=== PATIENT | male | born 1950 | race African-American/Black ===

== ENCOUNTER 2020-04-09 13:57 | Outpatient (CLI) | payer MEDICARE, SELFPAY ==
[2020-04-09 14:44] LABS: Basophils Percent Auto 0.4 % (0.2-1.2); Eosinophils Absolute Auto 0.2 K/mm3 (0-0.3); Eosinophils Percent Auto 2.4 % (0-4.4); Hematocrit 40.6 % (42.0-52.0); Hemoglobin 13.4 g/dL (14.0-18.0); Immature Granulocyte Absolute 0.02 K/mm3 (0.00-0.031); Immature Granulocyte Percent A 0.2 % (0-0.5); Lymphocytes Absolute Auto 1.13 K/mm3 (0.9-3.2); Lymphocytes Percent Auto 13.7 % (18.3-44.2); Mean Corpuscular Hemoglobin 29.4 pg (26-34); Mean Platelet Volume 11.1 fl (7.4-10.4); Monocytes Absolute Auto 0.6 K/mm3 (0.1-0.6); Monocytes Percent Auto 6.8 % (2.6-8.5); Neutrophils Absolute Auto 6.3 K/mm3 (1.3-6.7); Neutrophils Percent Auto 76.5 % (45.5-73.1); Platelet Count Result 215 k/mm3 (150-375); Red Blood Count 4.56 M/mm3 (4.6-6.20); Red Cell Distribution Width 13.5 % (11.5-14.5); White Blood Count 8.2 K/mm3 (4.5-10.0)
[2020-04-09 15:05] LABS: Alanine Aminotransferase 29 U/L (4-50); Albumin Level 4.5 g/dL (3.5-5.1); Alkaline Phosphatase 82 U/L (38-126); Anion Gap 9 mmol/L (8-16); Aspartate Amino Transferase 21 U/L (17-59); Bilirubin,Total 0.5 mg/dL (0.2-1.3); Blood Urea Nitrogen 36 mg/dL (9-20); Calcium 9.9 mg/dL (8.4-10.2); Carbon Dioxide 28 mmol/L (22-30); Chloride 104 mmol/L (98-107); Estimated Glomerular Filt Rate 49; Glucose 104 mg/dL (75-110); Potassium 4.5 mmol/L (3.4-5.0); Sodium 141 mmol/L (137-145); Uric Acid 4.3 mg/dL (3.5-8.5)
[2020-04-09 15:15] LABS: Hemoglobin A1C 6.4 % (<5.7)
[2020-04-09 15:33] LABS: Prostate Specific Antigen 1.2 ng/mL (< OR = 4.0)
== END 2020-04-09 13:58 | disposition home or self-care (01) ==
PROVIDERS: PCP Family Medicine; Visit Provider Nurse Practitioner Family
DX: E78.5 Hyperlipidemia, unspecified (principal); I10 Essential (primary) hypertension; E11.9 Type 2 diabetes mellitus without complications; M10.9 Gout, unspecified; R35.1 Nocturia; Z12.5 Encounter for screening for malignant neoplasm of prostate
CPT/HCPCS: 36415; 80053; 83036; 84153; 84550; 85025; G0103

== ENCOUNTER 2020-08-15 11:05 | Outpatient (CLI) | payer MEDICARE, SELFPAY ==
[2020-08-15 12:24] LABS: Alanine Aminotransferase 32 U/L (4-50); Albumin Level 4.4 g/dL (3.5-5.1); Alkaline Phosphatase 73 U/L (38-126); Anion Gap 7 mmol/L (8-16); Aspartate Amino Transferase 27 U/L (17-59); Bilirubin,Total 0.5 mg/dL (0.2-1.3); Blood Urea Nitrogen 14 mg/dL (9-20); Calcium 9.5 mg/dL (8.4-10.2); Carbon Dioxide 29 mmol/L (22-30); Chloride 105 mmol/L (98-107); Estimated Glomerular Filt Rate > 60; Glucose 114 mg/dL (75-110); Potassium 4.2 mmol/L (3.4-5.0); Sodium 141 mmol/L (137-145)
[2020-08-15 13:22] LABS: Hemoglobin A1C 6.1 % (<5.7)
== END 2020-08-15 11:06 | disposition home or self-care (01) ==
PROVIDERS: PCP Family Medicine; Visit Provider Nurse Practitioner Family
DX: N18.30 Chronic kidney disease, stage 3 unspecified (principal); E11.9 Type 2 diabetes mellitus without complications; I12.9 Hypertensive chronic kidney disease with stage 1 through stage 4 chronic kidney disease, or unspecified chronic kidney disease
CPT/HCPCS: 36415; 80053; 83036

== ENCOUNTER 2020-08-28 08:19 | Outpatient (CLI) | payer MEDICARE, SELFPAY | END 2020-08-28 08:20 | disposition home or self-care (01) | LOC: ANHCOVIDVC 08:20 | PROVIDERS: PCP Family Medicine; Visit Provider Family Medicine | DX: Z23 Encounter for immunization (principal) | CPT/HCPCS: 0001A; 91300 ==

== ENCOUNTER 2020-09-18 08:23 | Outpatient (CLI) | payer MEDICARE, SELFPAY | END 2020-09-18 08:24 | disposition home or self-care (01) | LOC: ANHCOVIDVC 08:23 | PROVIDERS: PCP Family Medicine; Visit Provider Family Medicine | DX: Z23 Encounter for immunization (principal) | CPT/HCPCS: 0002A; 91300 ==

== ENCOUNTER 2021-03-28 08:07 | Outpatient (CLI) | payer MEDICARE, SELFPAY ==
--- NOTE | ~2021-03-28 | US_ITS ---
EXAMINATION: US aorta [facility] scr[facility] DATE: 03/28/2021 08:35 INDICATION: Encounter for screening for cardiovascular disorders. TECHNIQUE: Grayscale, color Doppler, and pulsed Doppler images of the aorta and common iliac arteries were obtained. COMPARISON: CT abdomen and pelvis 06/21/2011 FINDINGS: The aorta is normal in caliber. The right common iliac artery is normal in caliber. The left common i liac artery is normal in caliber. IMPRESSION: 1. No abdominal aortic aneurysm. Reviewed, dictated and finalized at location A.
== END 2021-03-28 08:08 | disposition home or self-care (01) ==
LOC: ANHIMG 08:08
PROVIDERS: PCP Family Medicine; Visit Provider Family Medicine
DX: Z13.6 Encounter for screening for cardiovascular disorders (principal)
CPT/HCPCS: 76706

== ENCOUNTER → 2021-12-04 10:29 | Outpatient (CLI) | payer MEDICARE, SELFPAY ==
--- NOTE | ~2021-12-04 | XR_ITS ---
EXAMINATION: XR hand RT min 3V DATE: 12/04/2021 11:22 INDICATION: Right hand pain. Injury. TECHNIQUE: 4 views of right hand were obtained. COMPARISON: None. FINDINGS: Bone alignment is normal. There is an intra-articular fracture of base of fifth metacarpal. There is moderate osteoarthritis of distal radioulnar joint and mild osteoarthritis of triscaphe stuart nt and first carpometacarpal joint. There is moderate osteoarthritis of second and third metacarpopha langeal joints. There is mild osteoarthritis of first metacarpophalangeal joint and mild to moderate osteoarthritis of many of the interphalangeal joints. IMPRESSION: 1. Intra-articular fracture of base of fifth metacarpal. 2. Polyarticular osteoarthritis. Reviewed, dictated and finalized at location B.
== END ==
PROVIDERS: PCP Family Medicine; Visit Provider Family Medicine
DX: M19.041 Primary osteoarthritis, right hand (principal)
CPT/HCPCS: 73130

== ENCOUNTER 2022-07-15 09:37 | Outpatient (CLI) | payer MEDICARE, SELFPAY ==
[2022-07-15 10:49] LABS: Hematocrit 41.1 % (42.0-52.0); Hemoglobin 13.2 g/dL (14.0-18.0); Mean Corpuscular HGB Conc 32.1 g/dl (32-36); Mean Corpuscular Hemoglobin 28.6 pg (26-34); Mean Corpuscular Volume 89.2 fl (80-100); Mean Platelet Volume 11.1 fl (7.4-10.4); Platelet Count Result 184 k/mm3 (150-375); Red Blood Count 4.61 M/mm3 (4.6-6.20); Red Cell Distribution Width 13.9 % (11.5-14.5); White Blood Count 6.3 K/mm3 (4.5-10.0)
[2022-07-15 10:54] LABS: Alanine Aminotransferase 27 U/L (6-50); Albumin Level 4.2 g/dL (3.5-5.1); Alkaline Phosphatase 68 U/L (38-126); Anion Gap 7 mmol/L (8-16); Aspartate Amino Transferase 25 U/L (17-59); Bilirubin,Total 0.6 mg/dL (0.2-1.3); Blood Urea Nitrogen 24 mg/dL (9-20); Carbon Dioxide 27 mmol/L (22-30); Chloride 104 mmol/L (98-107); Cholesterol 138 mg/dL (0-200); Estimated Glomerular Filt Rate > 60; Glucose 94 mg/dL (65-110); HDL Direct 40 mg/dL; Potassium 4.1 mmol/L (3.4-5.0); Sodium 138 mmol/L (137-145); Triglycerides 180 mg/dL (<150)
[2022-07-15 11:05] LABS: LDL Cholesterol Direct 52 mg/dL
[2022-07-15 11:10] LABS: Appearance Urine Clear (Clear); Bilirubin Urine Negative (Negative); Blood Urine Negative (Negative); Color Urine Yellow (Yellow); Glucose Urine UA Negative (Negative); Ketones Urine Negative (Negative); Leukocyte Esterase Ur Negative LEU/UL (NEGATIVE); Nitrate Urine Negative (Negative); Protein Urine Negative (Negative); Urobilinogen Urine 0.2 mg/dL (<2.0)
[2022-07-15 11:52] LABS: Hemoglobin A1C 6.5 % (<5.7)
[2022-07-15 12:31] LABS: Basophils Percent Auto 0.5 % (0.2-1.2); Eosinophils Absolute Auto 0.2 K/mm3 (0-0.3); Eosinophils Percent Auto 2.5 % (0-4.4); Hematocrit 41.8 % (42.0-52.0); Hemoglobin 13.6 g/dL (14.0-18.0); Immature Granulocyte Absolute 0.01 K/mm3 (0.00-0.031); Immature Granulocyte Percent A 0.2 % (0-0.5); Lymphocytes Absolute Auto 1.13 K/mm3 (0.9-3.2); Lymphocytes Percent Auto 17.9 % (18.3-44.2); Mean Corpuscular HGB Conc 32.5 g/dl (32-36); Mean Corpuscular Hemoglobin 29.3 pg (26-34); Mean Corpuscular Volume 90.1 fl (80-100); Mean Platelet Volume 10.8 fl (7.4-10.4); Monocytes Absolute Auto 0.5 K/mm3 (0.1-0.6); Monocytes Percent Auto 7.1 % (2.6-8.5); Neutrophils Absolute Auto 4.5 K/mm3 (1.3-6.7); Neutrophils Percent Auto 71.8 % (45.5-73.1); Platelet Count Result 188 k/mm3 (150-375); Red Blood Count 4.64 M/mm3 (4.6-6.20); Red Cell Distribution Width 14.1 % (11.5-14.5); White Blood Count 6.3 K/mm3 (4.5-10.0)
[2022-07-15 13:08] LABS: Add Urine Microscopic? NO
[2022-07-15 13:24] LABS: HIV 1/2 Ab P24 Ag Result Negative (Negative)
[2022-07-15 22:21] LABS: Microalbumin Urine Random 9.1 mg/L (0-16.7)
[2022-07-15 22:22] LABS: MALB Creatinine Ratio 4.7 mg/g (0-30)
[2022-07-18 14:03] LABS: NIL 0.02 IU/mL; Quantiferon TB Plus, 1T NEGATIVE (NEGATIVE)
== END 2022-07-15 09:38 | disposition home or self-care (01) ==
PROVIDERS: PCP Family Medicine; Visit Provider Family Medicine
DX: R35.1 Nocturia (principal); Z51.81 Encounter for therapeutic drug level monitoring; Z79.899 Other long term (current) drug therapy; L40.0 Psoriasis vulgaris; I10 Essential (primary) hypertension; E78.2 Mixed hyperlipidemia; E11.22 Type 2 diabetes mellitus with diabetic chronic kidney disease; N18.30 Chronic kidney disease, stage 3 unspecified
CPT/HCPCS: 36415; 80053; 80061; 81003; 82043; 83036; 84153; 84443; 85025; 85027; 86480; 86703; G0432

== ENCOUNTER → 2022-08-06 09:53 | Outpatient (CLI) | payer MEDICARE, SELFPAY ==
--- NOTE | ~2022-08-06 | CT_ITS ---
EXAMINATION: CT lung screening DATE: 08/06/2022 10:12 INDICATION: Lung cancer screening. History of tobacco dependence. TECHNIQUE: Computed tomography (CT) of the chest was performed without intravenous contrast. The dose -length product was 166.14 mGy-cm. Automated exposure control and iterative reconstruction technique were employed. COMPARISON: Chest x-ray dated 06/26/2013 FINDINGS: No thoracic lymphadenopathy. No significant pleural or pericardial effusion. No endobronchi al lesions. No focal airspace consolidation. No pneumothorax. There are calcified granulomas of the l eft upper lobe. There is moderate thoracic spondylosis. IMPRESSION: 1. Lung-RADS category 1: Negative. Continue annual screening with noncontrast low-dose chest CT in 12 months. Reviewed, dictated and finalized at location A. CITOR INSPECTOR IMPRESSION: 1. Lung-RADS category 1: Negative. Continue annual screening with noncontrast l ow-dose chest CT in 12 months.
== END ==
PROVIDERS: PCP Family Medicine; Visit Provider Family Medicine
DX: Z12.2 Encounter for screening for malignant neoplasm of respiratory organs (principal); F17.210 Nicotine dependence, cigarettes, uncomplicated
CPT/HCPCS: 71271

== ENCOUNTER 2023-04-15 15:12 | Outpatient (CLI) | payer MEDICARE, SELFPAY ==
[2023-04-15 16:38] LABS: Alanine Aminotransferase 24 U/L (6-50); Albumin Level 4.5 g/dL (3.5-5.1); Alkaline Phosphatase 79 U/L (38-126); Anion Gap 12 mmol/L (8-16); Aspartate Amino Transferase 24 U/L (17-59); Bilirubin,Total 0.4 mg/dL (0.2-1.3); Blood Urea Nitrogen 35 mg/dL (9-20); Calcium 9.9 mg/dL (8.4-10.2); Carbon Dioxide 25 mmol/L (22-30); Chloride 104 mmol/L (98-107); Estimated Glomerular Filt Rate 38; Glucose 114 mg/dL (65-110); Potassium 3.7 mmol/L (3.4-5.0); Sodium 141 mmol/L (137-145)
[2023-04-15 21:27] LABS: Hemoglobin A1C 6.3 % (<5.7)
== END 2023-04-15 15:13 | disposition home or self-care (01) ==
PROVIDERS: PCP Family Medicine; Visit Provider Family Medicine
DX: E11.9 Type 2 diabetes mellitus without complications (principal)
CPT/HCPCS: 36415; 80053; 83036

== ENCOUNTER 2023-12-30 12:53 | Outpatient (CLI) | payer MEDICARE, SELFPAY ==
--- NOTE | ~2023-12-30 | CT_ITS ---
CT Scan of the Chest without Contrast: Clinical Indication: Lung cancer screening, nicotine dependence Technique: Contiguous sections were acquired throughout the chest without intravenous contrast. Dose reduction technique was used on this scan by utilizing automated exposure control and iterative recon struction technique. The dose-length product (DLP) was 94.18 mGy-cm. COMPARISON: 08/06/2022 Findings: There is no evidence of any significant mediastinal, hilar or axillary lymphadenopathy. Extensive cor onary artery calcifications are present. There is no evidence of pleural or pericardial effusion. The lungs are clear. No pulmonary nodules or infiltrates are noted. Images through the upper abdomen reveal no abnormalities. Impression: Lung RADS 1: Negative. 12 month follow-up screening CT advised. Reviewed, dictated and finalized at location . Impression: Lung RADS 1: Negative. 12 month follow-up screening CT advised.
[2023-12-30 13:35] LABS: Basophils Percent Auto 0.4 % (0.2-1.2); Eosinophils Absolute Auto 0.2 K/mm3 (0-0.3); Eosinophils Percent Auto 2.6 % (0-4.4); Hematocrit 40.2 % (42.0-52.0); Hemoglobin 13.3 g/dL (14.0-18.0); Immature Granulocyte Absolute 0.01 K/mm3 (0.00-0.031); Immature Granulocyte Percent A 0.1 % (0-0.5); Lymphocytes Percent Auto 17.4 % (18.3-44.2); Mean Corpuscular HGB Conc 33.1 g/dl (32-36); Mean Corpuscular Hemoglobin 29.6 pg (26-34); Mean Corpuscular Volume 89.5 fl (80-100); Mean Platelet Volume 11.6 fl (7.4-10.4); Monocytes Absolute Auto 0.5 K/mm3 (0.1-0.6); Monocytes Percent Auto 6.8 % (2.6-8.5); Neutrophils Percent Auto 72.7 % (45.5-73.1); Platelet Count Result 192 k/mm3 (150-375); Red Blood Count 4.49 M/mm3 (4.6-6.20); Red Cell Distribution Width 14.2 % (11.5-14.5); White Blood Count 6.9 K/mm3 (4.5-10.0)
[2023-12-30 13:48] LABS: Appearance Urine Clear (Clear); Bilirubin Urine Negative (Negative); Blood Urine Negative (Negative); Color Urine Yellow (Yellow); Glucose Urine UA Negative (Negative); Ketones Urine Negative (Negative); Leukocyte Esterase Ur Negative LEU/UL (Negative); Nitrate Urine Negative (Negative); Protein Urine Negative (Negative); Specific Grav Ur 1.018 (1.001-1.035); Urobilinogen Urine 0.2 mg/dL (<2.0)
[2023-12-30 14:11] LABS: Creatinine Urine 205.8 mg/dL
[2023-12-30 14:11] LABS: Alanine Aminotransferase 21 U/L (6-50); Albumin Level 4.9 g/dL (3.5-5.1); Alkaline Phosphatase 62 U/L (38-126); Anion Gap 11 mmol/L (4-12); Aspartate Amino Transferase 23 U/L (17-59); Bilirubin,Total 0.6 mg/dL (0.2-1.3); Blood Urea Nitrogen 35 mg/dL (9-20); Calcium 9.6 mg/dL (8.4-10.2); Carbon Dioxide 27 mmol/L (22-30); Chloride 101 mmol/L (98-107); Cholesterol 136 mg/dL (0-200); Estimated Glomerular Filt Rate 42; Glucose 115 mg/dL (65-110); HDL Direct 39 mg/dL; Potassium 3.9 mmol/L (3.4-5.0); Sodium 139 mmol/L (137-145); Triglycerides 155 mg/dL (<150)
[2023-12-30 14:16] LABS: MALB Creatinine Ratio 5.4 mg/g (0-30); Microalbumin Urine Random 11.2 mg/L (0-16.7)
[2023-12-30 14:17] LABS: Iron 69 ug/dL (49-181)
[2023-12-30 14:23] LABS: LDL Cholesterol Direct 70 mg/dL
[2023-12-30 14:27] LABS: Percent Iron Saturation 22 % (20-50)
[2023-12-30 14:33] LABS: Add Urine Microscopic? NO
[2023-12-30 14:41] LABS: Prostate Specific Antigen 1.2 ng/mL (< OR = 4.0)
[2023-12-30 15:16] LABS: Folic Acid 3.8 ng/mL (2.76->20)
[2023-12-30 21:28] LABS: Hemoglobin A1C 6.5 % (<5.7)
== END 2023-12-30 12:54 | disposition home or self-care (01) ==
PROVIDERS: PCP Family Medicine; Visit Provider Physician Assistant
DX: D64.9 Anemia, unspecified (principal); E11.9 Type 2 diabetes mellitus without complications; E78.5 Hyperlipidemia, unspecified; I10 Essential (primary) hypertension; M10.9 Gout, unspecified; N18.30 Chronic kidney disease, stage 3 unspecified; Z12.5 Encounter for screening for malignant neoplasm of prostate; F17.210 Nicotine dependence, cigarettes, uncomplicated; Z12.2 Encounter for screening for malignant neoplasm of respiratory organs
CPT/HCPCS: 36415; 71271; 80053; 80061; 81003; 82043; 82607; 82728; 82746; 83036; 83540; 83550; 84153; 84443; 84550; 85025; G0103

== ENCOUNTER 2024-02-08 11:45 | Outpatient (CLI) | payer MEDICARE, SELFPAY ==
--- NOTE | ~2024-02-08 | XR_ITS ---
XR hip BI 2V w AP pelvis Ordering provider: Marty Lawrence PA-C History: . BILATERAL ANTERIOR HIP PAIN, NO INJURY . Comparison: None. FINDINGS: BONES: No acute fracture or dislocation. HIP JOINT SPACES: Mild bilateral osteoarthritic changes with marginal osteophytes SACROILIAC JOINT SPACES/LUMBAR SPINE: The sacroiliac joint spaces shows bilateral sacroiliacs. Mild d egenerative changes of the visualized lower lumbar spine. PUBIC SYMPHYSIS: Normal. SOFT TISSUES: Atherosclerotic changes of the vessels. IMPRESSION: No acute osseous abnormality of the bilateral hips and pelvis. Reviewed, dictated and finalized at location A.
[2024-02-08 13:24] LABS: Basophils Percent Auto 0.4 % (0.2-1.2); Eosinophils Absolute Auto 0.2 K/mm3 (0-0.3); Eosinophils Percent Auto 1.9 % (0-4.4); Hematocrit 36.9 % (42.0-52.0); Hemoglobin 12.3 g/dL (14.0-18.0); Immature Granulocyte Absolute 0.03 K/mm3 (0.00-0.031); Immature Granulocyte Percent A 0.4 % (0-0.5); Lymphocytes Absolute Auto 1.15 K/mm3 (0.9-3.2); Lymphocytes Percent Auto 14.9 % (18.3-44.2); Mean Corpuscular HGB Conc 33.3 g/dl (32-36); Mean Corpuscular Hemoglobin 29.9 pg (26-34); Mean Corpuscular Volume 89.8 fl (80-100); Mean Platelet Volume 10.9 fl (7.4-10.4); Monocytes Absolute Auto 0.8 K/mm3 (0.1-0.6); Monocytes Percent Auto 10.2 % (2.6-8.5); Neutrophils Absolute Auto 5.6 K/mm3 (1.3-6.7); Neutrophils Percent Auto 72.2 % (45.5-73.1); Platelet Count Result 266 k/mm3 (150-375); Red Blood Count 4.11 M/mm3 (4.6-6.20); Red Cell Distribution Width 13.3 % (11.5-14.5); White Blood Count 7.7 K/mm3 (4.5-10.0)
[2024-02-08 13:47] LABS: Alanine Aminotransferase 15 U/L (6-50); Albumin Level 4.3 g/dL (3.5-5.1); Alkaline Phosphatase 67 U/L (38-126); Anion Gap 13 mmol/L (4-12); Aspartate Amino Transferase 18 U/L (17-59); Bilirubin,Total 0.4 mg/dL (0.2-1.3); Blood Urea Nitrogen 51 mg/dL (9-20); Calcium 9.4 mg/dL (8.4-10.2); Carbon Dioxide 25 mmol/L (22-30); Chloride 100 mmol/L (98-107); Creatine Kinase 113 U/L (55-170); Estimated Glomerular Filt Rate 38; Glucose 129 mg/dL (65-110); Potassium 4.2 mmol/L (3.4-5.0); Sodium 138 mmol/L (137-145)
[2024-02-08 13:53] LABS: Rheumatoid Factor < 12.0 IU/ML (<12)
[2024-02-08 14:25] LABS: Erythrocyte Sedimentation Rate 63 mm/hr (0-20)
[2024-02-09 11:08] LABS: CRP, High Sensitivity >20.0 mg/L
== END 2024-02-08 11:46 | disposition home or self-care (01) ==
PROVIDERS: PCP Family Medicine; Visit Provider Physician Assistant
DX: M25.551 Pain in right hip (principal); M25.552 Pain in left hip; R29.898 Other symptoms and signs involving the musculoskeletal system; I10 Essential (primary) hypertension
CPT/HCPCS: 36415; 73521; 80053; 82550; 85025; 85652; 86038; 86039; 86141; 86430

== ENCOUNTER 2024-03-21 15:11 | Emergency (ER) | payer MEDICARE, SELFPAY ==
[2024-03-21 15:15] VITALS: BP 128/68; PULSE 76; RESP 20; TEMP 36.8; O2SAT 98
--- NOTE | 2024-03-21 16:06 | ED.BACK ---
HPI - Back Pain/Injury General Chief Complaint: Urogenital-Male Stated Complaint: low back pain, abd pain, groin pain Time Seen by Provider: 03/21/24 16:06 Focused HPI: This is a 73 year old male that presents to the ER for left sided hip pain, low back pain ongoing over the last several weeks. Reports he has had some x-rays of his low back and was evaluated at [facility]. No recent injuries. Reports he had surgery on his lumbar spine years ago. Reports he has had some urinary incontinence. Also reports history of kidney stones. Denies fever, dysuria, hematuria, saddle anesthesia or bowel incontinence. GENERAL: Well-appearing, well-nourished, and in no acute distress. HEAD: Normocephalic, atraumatic. CHEST: Clear to auscultation. ?No respiratory distress. HEART: Regular rate and rhythm.? NEURO: ?Alert and oriented x3. Patient screened in triage and initial orders placed.? ?Additional care and disposition to be based upon?diagnostic testing and treatment. Related Data Allergies Allergy/AdvReac Type Severity Reaction Status Date / Time No Known Allergies Allergy Verified 03/03/24 08:01 [facility] Past Medical History Medical History Psoriasis Family History Family History Mother Family history of kidney disease Diabetes mellitus Hypertension Family history of cardiovascular disease Father Hypertension Family history of lymphoma Sibling Family history of malignant neoplasm of breast in first degree relative Social History Social History Smoking packs per day: 0.5 Smoking cigarettes per day: 10.0 Years smoked: 15 Smoking pack-years: 7.50 Smoking status: Current every day smoker Tobacco type: cigarettes Second hand tobacco smoke exposure: Yes Alcohol intake: current Substance use: never Substance use type: does not use Living arrangements: with family Occupation/Education: retired Gender identity (if verbalized by the patient): Male Sexual Orientation (if Verbalized by the Patient): Straight or Heterosexual Course Course Emergency Course: Patient left after being seen by myself and before any further evaluation or management Vital Signs Vital signs: Vital Signs Temperature 98.3 F 03/21/24 15:15 Pulse Rate 76 03/21/24 15:15 Respiratory Rate 20 03/21/24 15:15 Blood Pressure 128/68 03/21/24 15:15 Pulse Oximetry 98 03/21/24 15:15 Oxygen Delivery Room Air 03/21/24 15:15 Temperature 99.0 F 03/21/24 17:24 Pulse Rate 67 03/21/24 17:24 Respiratory Rate 18 03/21/24 17:24 Blood Pressure 114/66 03/21/24 17:24 Pulse Oximetry 99 03/21/24 17:24 Oxygen Delivery Room Air 03/21/24 15:15 Discharge Plan Discharge Clinical Impression: Low back pain Patient Disposition: Elopement After Seen by Prov Condition: Stable Prescriptions: No Action hydrocortisone 2.5 % cream 1 applic topical BID Qty: 453.6 1RF tramadol 50 mg tablet 50 mg PO Q6H PRN (Reason: pain) Qty: 30 0RF prednisone 10 mg tablet See Rx Instructions PO DAILY Qty: 15 0RF Rx Instructions: Take 2 tabs x 5 days, then 1 tab x 5 days (DME) Blood Glucose Test Strip See Rx Instructions .ROUTE .MEDSUPPLY Qty: 100 3RF Rx Instructions: Use once daily to check blood sugar (DME) lancets Misc See Rx Instructions .ROUTE .MEDSUPPLY Qty: 100 2RF Rx Instructions: Use once daily to check blood sugar clobetasol 0.05 % shampoo 1 applic topical DAILY Qty: 118 0RF tadalafil 20 mg tablet 20 mg PO DAILY PRN (Reason: sexual activity) Qty: 30 0RF Rx Instructions: administer approximately 30min before sexual activity; do not use more than 1 dose per 24hrs indomethacin 25 mg capsule 50 mg PO TID Qty: 30 0RF Rx Instructions: Take 50mg TID x 3 days; Then decrease dosage to 2
[2024-03-21 17:24] VITALS: BP 114/66; PULSE 67; RESP 18; TEMP 37.2; O2SAT 99
--- NOTE | 2024-03-21 20:24 | PC.NURSE ---
Pt approaches triage desk stating he is going he is going to leave due to wait times. Pt advised to be seen in nearest emergency dept if symptoms worsening.
== END 2024-03-21 20:24 | disposition left against medical advice (07) ==
LOC: ANHED 20:31
PROVIDERS: Emergency Provider Physician Assistant; PCP Family Medicine
DX: M54.50 Low back pain, unspecified (principal); L40.9 Psoriasis, unspecified; F17.210 Nicotine dependence, cigarettes, uncomplicated; Z79.84 Long term (current) use of oral hypoglycemic drugs; Z79.899 Other long term (current) drug therapy
CPT/HCPCS: 99281

== ENCOUNTER 2024-03-23 16:06 | Outpatient (CLI) | payer MEDICARE, SELFPAY ==
[2024-03-23 16:53] LABS: CRP 20.5 mg/dL (<1.0)
[2024-03-23 16:57] LABS: Erythrocyte Sedimentation Rate 62 mm/hr (0-20)
== END 2024-03-23 16:07 | disposition home or self-care (01) ==
LOC: ANHLAB 16:11
PROVIDERS: PCP Family Medicine; Visit Provider Family Medicine
DX: M25.551 Pain in right hip (principal); M25.552 Pain in left hip; M54.50 Low back pain, unspecified
CPT/HCPCS: 36415; 85652; 86140

== ENCOUNTER 2024-04-21 14:29 | Outpatient (CLI) | payer MEDICARE, SELFPAY ==
--- NOTE | ~2024-04-21 | MR_ITS ---
EXAMINATION: MR lumbar spine wo/w con DATE: 04/21/2024 15:29 INDICATION: Acute left-sided low back pain. TECHNIQUE: Magnetic resonance imaging (MRI) of the lumbar spine was performed without and with 16 mL MultiHance intravenous contrast. COMPARISON: None FINDINGS: There is 11 degrees levoscoliosis of lumbar spine. Vertebral body heights are normal. There is mildly decreased disc height at L2-L3, L3-L4, and L4-L5 and severely decreased disc height at L5- S1. There is ligamentum flavum hypertrophy at the disc levels from L1-L2 through L4-L5. The distal sp inal cord signal intensity is normal. The conus medullaris is at L2. The following disc levels are sp ecifically discussed: L1-L2: There is a left foraminal protrusion. There is severe bilateral facet joint osteoarthritis. Th ere is mild left neural foraminal stenosis. There is no central canal stenosis. L2-L3: The disc is bulging. There is severe bilateral facet joint osteoarthritis. There is mild bilat eral neural foraminal stenosis. There is mild central canal stenosis. L3-L4: The disc is bulging. There is severe bilateral facet joint osteoarthritis. There is mild bilat eral neural foraminal stenosis. There is mild central canal stenosis. L4-L5: The disc is bulging. There is severe bilateral facet joint osteoarthritis. There is mild bilat eral neural foraminal stenosis. There is mild central canal stenosis. L5-S1: The disc is bulging and has an annular fissure. There is severe right and moderate left facet joint osteoarthritis. There is mild bilateral neural foraminal stenosis. There is mild central canal stenosis. There are changes of posterior decompression. IMPRESSION: 1. Severe lower lumbar spondylosis. Reviewed, dictated and finalized at location B.
== END 2024-04-21 14:30 | disposition home or self-care (01) ==
PROVIDERS: PCP Family Medicine; Visit Provider Internal Medicine
DX: M47.896 Other spondylosis, lumbar region (principal)
CPT/HCPCS: 72158; A9577

== ENCOUNTER 2024-07-11 20:02 | Emergency (ER) | payer MEDICARE, SELFPAY ==
[2024-07-11 20:04] VITALS: BP 101/55; PULSE 64; RESP 15; TEMP 36.3; O2SAT 98
--- NOTE | 2024-07-11 20:10 | ECG_ITS ---
Test Date: 2024-07-11 20:15:26 Measurements Intervals [place] Rate: 57 P: 44 SD: 181 QRS: -23 QRSD: 90 T: -27 QT: 437 QTc: 428 Interpretive Statements SINUS BRADYCARDIA WITH OCCASIONAL SUPRAVENTRICULAR PREMATURE COMPLEXES BORDERLINE LEFT AXIS DEVIATION [QRS AXIS < -20] NONSPECIFIC T-WAVE ABNORMALITY No previous ECG available for comparison Electronically Signed On 07-12-2024 10:41:13 NURSING HOME ASSISTANT ADMINISTRATOR by Ibrahima Beebe M.D.
[2024-07-11 20:34] LABS: Basophils Percent Auto 0.3 % (0.2-1.2); Eosinophils Absolute Auto 0.1 K/mm3 (0-0.3); Eosinophils Percent Auto 1.2 % (0-4.4); Hematocrit 39.3 % (42.0-52.0); Hemoglobin 12.6 g/dL (14.0-18.0); Immature Granulocyte Absolute 0.02 K/mm3 (0.00-0.031); Immature Granulocyte Percent A 0.2 % (0-0.5); Lymphocytes Absolute Auto 1.05 K/mm3 (0.9-3.2); Lymphocytes Percent Auto 12.2 % (18.3-44.2); Mean Corpuscular HGB Conc 32.1 g/dl (32-36); Mean Corpuscular Hemoglobin 29.6 pg (26-34); Mean Corpuscular Volume 92.3 fl (80-100); Mean Platelet Volume 11.4 fl (7.4-10.4); Monocytes Percent Auto 11.3 % (2.6-8.5); Neutrophils Absolute Auto 6.4 K/mm3 (1.3-6.7); Neutrophils Percent Auto 74.8 % (45.5-73.1); Platelet Count Result 199 k/mm3 (150-375); Red Blood Count 4.26 M/mm3 (4.6-6.20); Red Cell Distribution Width 13.5 % (11.5-14.5); White Blood Count 8.6 K/mm3 (4.5-10.0)
[2024-07-11 20:56] LABS: Alanine Aminotransferase 15 U/L (6-50); Albumin Level 4.2 g/dL (3.5-5.1); Alkaline Phosphatase 81 U/L (38-126); Anion Gap 16 mmol/L (4-12); Aspartate Amino Transferase 17 U/L (17-59); Bilirubin,Total 0.6 mg/dL (0.2-1.3); Blood Urea Nitrogen 51 mg/dL (9-20); Carbon Dioxide 25 mmol/L (22-30); Chloride 99 mmol/L (98-107); Estimated CRCL calculation 19 ml/min; Estimated Glomerular Filt Rate 23; Glucose 195 mg/dL (65-110); Potassium 3.7 mmol/L (3.4-5.0); Sodium 140 mmol/L (137-145)
[2024-07-11 21:15] LABS: Lipase 75 U/L (23-300); Magnesium 1.8 mg/dL (1.6-2.3)
[2024-07-11 21:26] LABS: Troponin I < 0.012 ng/mL (0.000-0.034)
[2024-07-11 22:01] VITALS: BP 93/60; PULSE 64; RESP 18; O2SAT 97
[2024-07-11] MEDS: SODIUM CHLORIDE 0.9% IV 1,000 ML 999 ML IV CONT ×2 (22:37)
[2024-07-11 22:46] LABS: Influenza A QL RT-PCR Negative (Negative); Influenza B QL RT-PCR Negative (Negative); RSV RNA, RT-PCR Negative (Negative); SARS-CoV-2 RNA PCR Negative (Negative)
--- NOTE | 2024-07-11 22:53 | ED_ITS ---
HPI - Dizziness General Chief Complaint: Syncope Stated Complaint: Syncopal Episode Time Seen by Provider: 07/11/24 21:58 History of Present Illness HPI Narrative: Patient is a 73-year-old male who presents to the emergency department this evening accompanied by his daughter and son due to concern for near syncopal episodes over the past few days. Patient admits that he has not been eating or drinking much due to no appetite and also has been having some vomiting and diarrhea. Daughter who is present at bedside states that he does not eat or drink anything throughout the whole day only at night before he goes to bed and when he eats very little. Admits to lightheadedness and some dizziness during those near syncopal episodes. Patient states that he remembers the events and states that he did not blacked out. Denies any seizure-like activity. Denies any focal weakness, numbness and/or tingling. Denies any URI symptoms including cough, shortness of breath, denies any urinary symptoms including dysuria or hematuria. Patient states that he feels great at this time and has no complaints or symptoms. Related Data Allergies Allergy/AdvReac Type Severity Reaction Status Date / Time No Known Allergies Allergy Verified 07/11/24 20:02 Review of Systems 2 Review of Systems: All systems are reviewed and are negative unless stated otherwise in the HPI. PMFSH Past Medical History Medical History Psoriasis Surgical History Surgical History History of lumbar surgery Family History Family History Mother Family history of kidney disease Diabetes mellitus Hypertension Family history of cardiovascular disease Father Hypertension Family history of lymphoma Sibling Family history of malignant neoplasm of breast in first degree relative Social History Social History Smoking packs per day: 0.5 Smoking cigarettes per day: 10.0 Years smoked: 15 Smoking pack-years: 7.50 Smoking status: Current every day smoker Tobacco type: cigarettes Second hand tobacco smoke exposure: Yes Alcohol intake: current Substance use: never Substance use type: does not use Living arrangements: with family Occupation/Education: retired Gender identity (if verbalized by the patient): Male Sexual Orientation (if Verbalized by the Patient): Straight or Heterosexual Exam 2 Narrative: General: Alert, awake, afebrile, in no acute distress. HEENT: PERRL, no rhinorrhea, no post nasal drip, oropharynx clear, dry mucous membranes. Neck: Trachea midline, no JVD, no lymphadenopathy. Cardiovascular: Regular rate and rhythm, no murmurs, rubs or gallops, no peripheral edema. Respiratory: Clear to auscultation bilaterally, no tachypnea, no wheezing, no rhonchi, no rubs, no respiratory distress. Abdomen: Soft, nontender, nondistended, no rebound, no guarding, no peritoneal signs. Musculoskeletal: No joint swelling or deformity, normal muscle tone, intact bilateral hip flexions any extensions. Skin: No rashes or petechia, no signs of infection. Psychiatric: Alert and oriented, normal behavior and judgment for situation. Neurological: Alert and oriented to person, place, and time. Follows all commands. No focal deficits, moving all 4 extremities spontaneously, speech is clear and fluent. Course Vital Signs Vital signs: Vital Signs Temperature 97.4 F L 07/11/24 20:04 Pulse Rate 64 07/11/24 20:04 Respiratory Rate 15 07/11/24 20:04 Blood Pressure 101/55 L 07/11/24 20:04 Pulse Oximetry 98 07/11/24 20:04 Oxygen Delivery Room Air 07/11/24 20:04 Temperature 97.4 F L 07/11/24 20:04 Pulse Rate 65 07/12/24 00:09 Respiratory Rate 17 07/12/24 00:09 Blood Pressure 92/63 L 07/12/24 00:09 Pulse Oximetry 100 07/12/24 00:09 Oxygen Delivery Room Air 07/11/24 20:04 MDM - Dizziness MDM Narrative Medical decision making narrative: The patient was evaluated by myself in the emergency department. History is obtained from patient who is an independent historian and physical exam was performed. External medical records were reviewed at this time. IV was established and pertinent tests were ordered. Patient was administered 1 L IV fluid bolus with normal saline. EKG was obtained which revealed sinus bradycardia rate of 57 beats per minute, no evidence of acute ischemia. EKG was independently interpreted by me and is currently pending official cardiology read. Laboratory results obtained revealing a BUN of 51 and creatinine of 3.28. Patient's creatinine usually runs as high as 2.10. At this time patient was administered a 2 L IV fluid bolus with normal saline. Patient was informed of these findings at bedside and that his acute kidney injury is likely secondary to dehydration. Repeat blood work after 2 L IV fluid bolus was obtained at this time and showed improvement of the patient's creatinine to 2.84. Differential diagnosis considerations include acute viral syndrome, dehydration, electrolyte derangements. Comorbidities impacting this visit include none. I have evaluated and discussed social determinants of health with the patient that could potentially impact subsequent diagnosis and treatment plans. On repeat assessment of the patient, reevaluation revealed that the patient is doing well and is in no acute distress. Patient symptoms have improved since he arrived to our emergency department. Repeat vital signs were all reviewed and noted to be stable. Differential diagnosis and treatment plan were discussed with the patient at bedside. Shared medical decision-making with the patient was discussed at this time regarding admission versus discharge. Patient states that he feels great and would like to be discharged. He was instructed that he will need to follow up with his primary care physician to have his kidney function recheck and that he will need to maintain her his oral hydration to prevent any worsening kidney function and patient is agreeable with this plan. All questions were answered to the patient's satisfaction. Patient will follow up with his PCP in 3-5 days. Script for Zofran was sent to patient's pharmacy to use as needed for nausea/vomiting. Patient was provided with strict return precautions and instructed to return to the emergency department if any new or worsening symptoms develop. The patient was discharged in stable condition. Lab Data 07/11/24 20:26 07/12/24 00:18 Labs: Lab Results 07/11/24 07/11/24 07/11/24 Range/Units : 20: 22:04 WBC 8.6 (4.5-10.0) K/mm3 RBC 4.26 L (4.6-6.20) M/mm3 Hgb 12.6 L (14.0-18.0) g/dL Hct 39.3 L (42.0-52.0) % MCV 92.3 (80-100) fl MCH 29.6 (26-34) pg MCHC 32.1 (32-36) g/dl RDW 13.5 (11.5-14.5) % Plt Count 199 (150-375) k/mm3 MPV 11.4 H (7.4-10.4) fl Immature Gran % (Auto) 0.2 (0-0.5) % Neut % (Auto) 74.8 H (45.5-73.1) % Lymph % (Auto) 12.2 L (18.3-44.2) % [place] % (Auto) 11.3 H (2.6-8.5) % Eos % (Auto) 1.2 (0-4.4) % Baso % (Auto) 0.3 (0.2-1.2) % Lymph # (Auto) 1.05 (0.9-3.2) K/mm3 [place] # (Auto) 1.0 H (0.1-0.6) K/mm3 Eos # (Auto) 0.1 (0-0.3) K/mm3 Baso # (Auto) 0.0 (0.0-0.1) K/mm3 Abs Immat Gran (auto) 0.02 (0.00-0.031) K/mm3 Absolute Neuts (auto) 6.4 (1.3-6.7) K/mm3 Absolute Nucleated RBC 0.000 (0.0-0.012) K/mm3 Nucleated RBC % 0.0 (0.0-0.2) % Sodium 140 (137-145) mmol/L Potassium 3.7 (3.4-5.0) mmol/L Chloride 99 (98-107) mmol/L Carbon Dioxide 25 (22-30) mmol/L Anion Gap 16 H (4-12) mmol/L BUN 51 H (9-20) mg/dL Creatinine 3.29 H (0.7-1.3) mg/dL Estim Creat Clear Calc 19 ml/min Estimated GFR 23 L (59 - ) Glucose 195 H (65-110) mg/dL Calcium 9.0 (8.4-10.2) mg/dL Magnesium 1.8 (1.6-2.3) mg/dL Total Bilirubin 0.6 (0.2-1.3) mg/dL AST 17 (17-59) U/L ALT 15 (6-50) U/L Alkaline Phosphatase 81 (38-126) U/L Troponin I < 0.012 (0.000-0.034) ng/mL Total Protein 8.0 (6.3-8.2) g/dL Albumin 4.2 (3.5-5.1) g/dL Lipase 75 (23-300) U/L Influenza A (RT-PCR) Negative (Negative) Influenza B (RT-PCR) Negative (Negative) RSV (RT-PCR) Negative (Negative) SARS-CoV-2 RNA (RT-PCR) Negative (Negative) 07/12/24 Range/Units 00:18 WBC (4.5-10.0) K/mm3 RBC (4.6-6.20) M/mm3 Hgb (14.0-18.0) g/dL Hct (42.0-52.0) % MCV (80-100) fl MCH (26-34) pg MCHC (32-36) g/dl RDW (11.5-14.5) % Plt Count (150-375) k/mm3 MPV (7.4-10.4) fl Immature Gran % (Auto) (0-0.5) % Neut % (Auto) (45.5-73.1) % Lymph % (Auto) (18.3-44.2) % [place] % (Auto) (2.6-8.5) % Eos % (Auto) (0-4.4) % Baso % (Auto) (0.2-1.2) % Lymph # (Auto) (0.9-3.2) K/mm3 [place] # (Auto) (0.1-0.6) K/mm3 Eos # (Auto) (0-0.3) K/mm3 Baso # (Auto) (0.0-0.1) K/mm3 Abs Immat Gran (auto) (0.00-0.031) K/mm3 Absolute Neuts (auto) (1.3-6.7) K/mm3 Absolute Nucleated RBC (0.0-0.012) K/mm3 Nucleated RBC % (0.0-0.2) % Sodium 139 (137-145) mmol/L Potassium 3.9 (3.4-5.0) mmol/L Chloride 108 H (98-107) mmol/L Carbon Dioxide 22 (22-30) mmol/L Anion Gap 9 (4-12) mmol/L BUN 49 H (9-20) mg/dL Creatinine 2.84 H (0.7-1.3) mg/dL Estim Creat Clear Calc 22 ml/min Estimated GFR 27 L (59 - ) Glucose 172 H (65-110) mg/dL Calcium 7.2 L (8.4-10.2) mg/dL Magnesium (1.6-2.3) mg/dL Total Bilirubin (0.2-1.3) mg/dL AST (17-59) U/L ALT (6-50) U/L Alkaline Phosphatase (38-126) U/L Troponin I (0.000-0.034) ng/mL Total Protein (6.3-8.2) g/dL Albumin (3.5-5.1) g/dL Lipase (23-300) U/L Influenza A (RT-PCR) (Negative) Influenza B (RT-PCR) (Negative) RSV (RT-PCR) (Negative) SARS-CoV-2 RNA (RT-PCR) (Negative) Discharge Plan Discharge Clinical Impression: Acute dehydration, CHAVEZ (acute kidney injury), Near syncope Patient Disposition: Home, Self-Care Condition: Improved Instructions: Antibiotic Form, Dehydration (ED), Near Syncope (ED) Additional Instructions: Please follow-up with your family doctor within the next 3-5 days to have your kidney function rechecked. You were instructed to maintain your oral hydration by drinking lots of fluids throughout the day to prevent kidney injury. Return to the emergency department if any new or worsening symptoms develop. Use the prescribed nausea pill as needed for nausea and/or vomiting. Patient Language: Swiss Prescriptions: New ondansetron 4 mg tablet,disintegrating 4 mg PO Q8H PRN (Reason: nausea and vomiting) Qty: 10 0RF No Action hydrocortisone 2.5 % cream 1 applic topical BID Qty: 453.6 1RF prednisone 10 mg tablet See Rx Instructions PO DAILY Qty: 15 0RF Rx Instructions: Take 2 tabs x 5 days, then 1 tab x 5 days hydrocodone-acetaminophen 5-325 mg tablet 1 tablet PO Q6H PRN (Reason: pain) Qty: 30 0RF (DME) Blood Glucose Test Strip See Rx Instructions .ROUTE .MEDSUPPLY Qty: 100 3RF Rx Instructions: Use once daily to check blood sugar (DME) lancets Misc See Rx Instructions .ROUTE .MEDSUPPLY Qty: 100 2RF Rx Instructions: Use once daily to check blood sugar clobetasol 0.05 % shampoo 1 applic topical DAILY Qty: 118 0RF tadalafil 20 mg tablet 20 mg PO DAILY PRN (Reason: sexual activity) Qty: 30 0RF Rx Instructions: administer approximately 30min before sexual activity; do not use more than 1 dose per 24hrs indomethacin 25 mg capsule 50 mg PO TID Qty: 30 0RF Rx Instructions: Take 50mg TID x 3 days; Then decrease dosage to 25mg TID x 5-7 days as needed amlodipine-olmesartan 10-40 mg tablet 1 tablet PO DAILY Qty: 90 2RF atorvastatin 40 mg tablet 40 mg PO DAILY Qty: 90 2RF hydrochlorothiazide 25 mg tablet 25 mg PO DAILY Qty: 90 2RF metformin 1,000 mg tablet 1,000 mg PO BID Qty: 180 2RF nebivolol [Bystolic] 5 mg tablet 5 mg PO DAILY Qty: 90 2RF Follow-up/Referrals: Rolando Reed MD [Primary Care Provider] - 3 Days Time of Disposition: 00:44
[2024-07-12 00:09] VITALS: BP 92/63; PULSE 65; RESP 17; O2SAT 100
[2024-07-12 00:34] LABS: Anion Gap 9 mmol/L (4-12); Blood Urea Nitrogen 49 mg/dL (9-20); Calcium 7.2 mg/dL (8.4-10.2); Carbon Dioxide 22 mmol/L (22-30); Chloride 108 mmol/L (98-107); Estimated CRCL calculation 22 ml/min; Estimated Glomerular Filt Rate 27; Glucose 172 mg/dL (65-110); Potassium 3.9 mmol/L (3.4-5.0); Sodium 139 mmol/L (137-145)
[2024-07-12 00:53] VITALS: BP 88/63; PULSE 62; RESP 18; O2SAT 98
--- OUTSIDE RECORDS SUMMARY | 2024-07-14 14:56 | XMS_ITS | Referral Summary ---
Author Organization [facility] [address] Address [address] [place] [address] Care Team Providers Care Form Setter Metal Road Forms Name Role Phone Enmanuel Martinez MD Unavailable [phone] Rolando Reed MD Primary Care Provider Encounters Date Type Department Care Team Description 04/28/2024 Orders Only [facility] [address] [place] [phone] Clay Morales PA 04/26/2024 Telephone [facility] [address] [place] [phone] Harriet Rai 04/26/2024 11:00 AM DRYWALL SPRAYER Office Visit [facility] [address] [place] [phone] Clay Morales PA Acute left-sided low back pain, unspecified whether sciatica present (Primary Dx); 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, subsequent encounter; 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 from Last 3 Months Allergies No known active allergies Medications amlodipine-olme sartan (ESTELA) 10-40 mg per tablet Take 1 tablet by mouth daily 03/28/2024 Active atorvastatin (LIPITOR) 40 mg tablet Take 1 tablet (40 mg total) by mouth daily 03/28/2024 Active hydroCHLOROthia zide (HYDRODIURIL) 25 mg tablet Take 1 tablet (25 mg total) by mouth daily 03/28/2024 Active HYDROcodone-chepe taminophen (NORCO) 5-325 mg per tablet Take by mouth every 6 (six) hours as needed 03/23/2024 Active metFORMIN (GLUCOPHAGE) 1,000 mg tablet Take 1 tablet (1,000 mg total) by mouth 2 (two) times a day 03/28/2024 Active methylPREDNISol one (MEDROL DOSEPACK) 4 mg Dosepack TAKE BY MOUTH DIRECTED ON INSIDE OF PACKAGE 02/08/2024 Active nebivoloL (BYSTOLIC) 5 mg tablet Take 1 tablet (5 mg total) by mouth daily 03/28/2024 Active traMADoL (ULTRAM) 50 mg tablet Take by mouth every 6 (six) hours as needed 03/03/2024 Active allopurinoL (ZYLOPRIM) 100 mg tablet Take 1 tablet (100 mg total) by mouth daily 30 tablet 1 04/26/2024 10/24/19 25 Active Active Problems Problem Noted Date Diagnosed Date Acute left-sided low back pain 04/05/2024 Assessment & Plan (04/26/2024 11:38 AM DRYWALL SPRAYER): Tai is a pleasant 73-year-old male that presented to our office with sudden onset pain few months prior that began in the lower back, left buttock, left proximal leg, left groin, and over the left greater trochanter with lesser degree of symptoms in the right side. Symptoms are more notable in the morning, although certainly exacerbated with activities. No previous benefit with Medrol Dosepak. Toradol and hydrocodone/acetaminophen provide partial relief of symptoms. Denies peripheral joint complaints. No obvious peripheral synovitis with a few Depuytren's contractures and Alejandra's/Heberden's nodes on exam that were appreciable. Has full hip range of motion exam with negative straight leg raise. Did have TTP over the left buttock particularly over the gluteus medius/minimus muscles. L-spine MRI with and without contrast 03/2024 displayed severe lower lumbar spondylosis. This time, suspect that the majority of his symptoms are related to degenerative arthritis throughout the lower back and/or gluteus medius/minimus muscle strain, which may be contributing as well. Symptoms are gradually improving. Will send to physical therapy. Symptoms persist, consider pain management for further evaluation and management. Follow up 8 weeks. Sooner if needed. Seen with Dr. Martinez. Assessment & Plan (04/05/2024 2:27 PM CDT): Tai is a pleasant 73-year-old male presenting with sudden onset pain few months prior that began over the lower back, left buttock, left proximal leg, left groin, and over the left greater trochanter with lesser degree of symptoms in the right side. Symptoms are more notable in the morning, although certainly exacerbated with activities. No previous benefit with Medrol Dosepak. Toradol and hydrocodone/acetaminophen provide partial relief of symptoms. Denies peripheral joint complaints. No obvious peripheral synovitis with a few Depuytren's contractures and Alejandra's/Heberden's nodes on exam that were appreciable. Has full hip range of motion exam with negative straight leg raise. Did have TTP over the left buttock particularly over the gluteus medius/minimus muscles. At this time, do not see obvious evidence to suggest underlying autoimmune disease, including PMR. Is predominantly unilateral symptoms make PMR much less likely. Suspect that gluteus medius/minimus muscle strain is contributing significantly to his symptoms. There is also concern for possible nerve impingement/degenerative changes in the lower back. Will evaluate further with appropriate serologies and lumbar MRI. Depending on workup, would consider PT. Follow-up 2 weeks. Sooner if needed. Seen with Dr. Martinez. Chronic idiopathic gout invo lving toe of left foot without tophus 04/05/2024 Assessment & Plan (04/26/2024 11:38 AM DRYWALL SPRAYER): History consistent with intermittent gout flares affecting the left big toe. Previously treated flares with colchicine. Allopurinol was stopped in the past due to concerns regarding family history of CKD. Labs 04/05/2024 displayed uric acid 10.4. We have discussed the potential long-term risks of uncontrolled gout flares in the long-term kidney/cardiovascular risks with uncontrolled hyperuricemia. Will resume treatment with allopurinol 100 mg daily for uric acid lowering therapy. Discussed side effects of the medication. Will recheck labs in 4 weeks. Follow up 8 weeks. Sooner if needed. Seen with Dr. Martinez. Assessment & Plan (04/05/2024 2:26 PM CDT): Has a history that sounds consistent with intermittent gout flares affecting the left big toe. Has previously only treated the flares with colchicine. Allopurinol was stopped in the past due to concerns regarding family history of CKD. At today's visit, we did discuss the potential long-term risks of uncontrolled gout flares and the long-term kidney risks that come with uncontrolled hyperuricemia. Will assess uric acid levels today. Depending on findings, could consider resuming allopurinol at that point. Social History Tobacco Use Types Packs/Day Years Used Date Smoking Tobacco: Never Assessed Sex and Gender Information Value Date Recorded Sex Assigned at Not on file Legal Sex Male 12:55 PM CDT Gender Identity Not on file Sexual Orientation Not on file Last Filed Vital Signs Vital Sign Reading Time Taken Comments Blood Pressure 110/70 04/26/2024 10:49 AM DRYWALL SPRAYER Pulse 63 04/26/2024 10:49 AM DRYWALL SPRAYER Temperature 36.8 ??C (98.2 ??F) 05/03/2020 11:[address] Respiratory Rate - - Oxygen Saturation 96% 04/26/2024 10:49 AM DRYWALL SPRAYER Inhaled Oxygen Concentration - - Weight 82.8 kg (182 lb 9.6 oz) 04/26/2024 10:49 AM DRYWALL SPRAYER Height 177.8 cm (5' 10 ) 04/26/2024 10:49 AM DRYWALL SPRAYER Body Mass Index 26.2 04/26/2024 10:49 AM DRYWALL SPRAYER Plan of Treatment Not on file Procedures Procedure Name Priority Date/Time Associated Diagnosis Comments SCAN - RADIOLOGY/IMAGING 04/28/2024 4:01 PM DRYWALL SPRAYER from Last 3 Months Results * SCAN - RADIOLOGY/IMAGING (04/28/2024 4:01 PM DRYWALL SPRAYER) Anatomical Region Laterality Modality Other Clay CERNA Final R esult from Last 3 Months Insurance AETNA MEDICARE AETNA MEDICARE Care Teams Form Setter Metal Road Forms Relationship Specialty Start Date End Date Rolando Reed MD [address] [facility] [address] [place] [address] PCP - General Family Medicine 03/09/24 Enmanuel Martinez MD [address] [place] [address] Consulting Physician Rheumatology 03/09/24
--- OUTSIDE RECORDS SUMMARY | 2024-07-14 14:56 | XMS_ITS | Continuity of Care Document ---
Author Name [facility] Organization [facility] Care Team Providers Care Toy Painter Name Role Phone [facility] Unavailable Unavailable Encounters Combined list of: 1) Encounters from Department of Veterans Affairs facilities going back up to thelast 18 months. 2) Encounters from the Department of [facility] facilities going back up to 280 months. Location Location Details Encounter Type Encounter Number Reason For Visit Attending Provider ADM Date DC Date Status Disposition Source [facility] Outpatient Encounter [id number] 01/[facility] Outpatient Encounter [id number] 01/21 [facility] N
--- OUTSIDE RECORDS SUMMARY | 2024-07-14 14:56 | XMS_ITS | CONTINUITY OF CARE DOCUMENT ---
Author Name yisel morillo Address Unknown Organization [facility] Address [address] [facility] [address] [place] [address] Phone [phone] Care Team Providers Care Loan Consultant Name Role Phone Migue Hill MD Unavailable Migue Hill MD Unavailable [phone] INSURANCE PROVIDERS Payer name Policy type / Coverage type Quin red green party ID AETNA MEDICARE KEM PPO Medicare [id number]
--- OUTSIDE RECORDS SUMMARY | 2024-07-14 14:56 | XMS_ITS | Clinical Summary ---
Author Organization [facility] [address] Address [address] [place] [address] Care Team Providers Care Brazer Assembler Name Role Phone Enmanuel Martinez MD Unavailable [phone] Rolando Reed MD Primary Care Provider Allergies No known active allergies Medications amlodipine-olme [...] by mouth daily 30 tablet 1 04/26/2024 05/04/20 25 Active Active Problems Problem Noted Date Diagnosed Date Acute left-sided low back pain 04/05/2024 Assessment & Plan (04/26/2024 11:38 AM PHILOSOPHY INSTRUCTOR): Tai is a pleasant 73-year-old male that [...] 04/05/2024 Assessment & Plan (04/26/2024 11:38 AM PHILOSOPHY INSTRUCTOR): History consistent with intermittent gout flares affecting [...] could consider resuming allopurinol at that point. 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 04/26/2024 Telephone [facility] [address] [place] [phone] Harriet Rai from Last 3 Months Surgical History Surgery Date Site/Laterality Comments BACK SURGERY KNEE SURGERY dmitriy unknown surgeries ROTATOR CUFF REPAIR KIDNEY STONE SURGERY Social History Tobacco Use Types Packs/Day Years Used Date Smoking Tobacco: Never Assessed Sex and Gender Information Value Date Recorded Sex Assigned at Not on file Legal Sex Male 12:55 PM CDT Gender Identity Not on file Sexual Orientation Not on file Obstetrics History Last Filed Vital Signs Vital Sign Reading Time Taken Comments Blood Pressure 110/70 04/26/2024 10:49 AM PHILOSOPHY INSTRUCTOR Pulse 63 04/26/2024 10:49 AM PHILOSOPHY INSTRUCTOR Temperature 36.8 ??C (98.2 ??F) 05/03/2020 11:[address] Respiratory Rate - - Oxygen Saturation 96% 04/26/2024 10:49 AM PHILOSOPHY INSTRUCTOR Inhaled Oxygen Concentration - - Weight 82.8 kg (182 lb 9.6 oz) 04/26/2024 10:49 AM PHILOSOPHY INSTRUCTOR Height 177.8 cm (5' 10 ) 04/26/2024 10:49 AM PHILOSOPHY INSTRUCTOR Body Mass Index 26.2 04/26/2024 10:49 AM PHILOSOPHY INSTRUCTOR Plan of Treatment Health Maintenance Due Date Last Done Comments Colon Cancer Screening-Colonoscopy 1950 Depression Screening 1950 Fall Risk Assessment 1950 Hepatitis C Screening 1950 Prostate Cancer Screening-PSA 1950 DTaP/Tdap/Td Vaccine (1 - Tdap) 11/14/1962 Hepatitis B Screening 11/14/1969 Zoster Vaccine (1 of 2) 11/14/2001 Abdominal Aortic Aneurysm (AAA) Screen 11/14/2016 Pneumococcal vaccine 65+ (1 of 1 - PCV) 11/14/2016 Well Visit 65+ 11/14/2016 Influenza Vaccine (#1) 2024 03/28/2020 Procedures Procedure Name Priority Date/Time Associated Diagnosis Comments SCAN - RADIOLOGY/IMAGING 04/28/2024 4:01 PM PHILOSOPHY INSTRUCTOR from Last 3 Months Results * SCAN - RADIOLOGY/IMAGING (04/28/2024 4:01 PM PHILOSOPHY INSTRUCTOR) Anatomical Region Laterality Modality Other Clay CERNA Final R esult from Last 3 Months Insurance [facility] MEDICARE AETNA MEDICARE Care Teams Brazer Assembler Relationship Specialty Start Date End Date Rolando Reed MD [address] [place] [address] PCP - General Family Medicine 03/09/24 Enmanuel Martinez MD [address] [place] [address] Consulting Physician Rheumatology 03/09/24
--- OUTSIDE RECORDS SUMMARY | 2024-07-14 15:02 | XMS_ITS | CONTINUITY OF CARE DOCUMENT ---
Author Name yisel morillo Address Unknown Organization [facility] Address [address] [place] [address] Phone [phone] Care Team Providers Care Sales Consultant Residential Manager Name Role Phone Migue Hill MD Unavailable [phone] Migeu Hill MD Unavailable [phone] INSURANCE PROVIDERS Payer name Policy type / Coverage type Quin red constitution party ID AETNA MEDICARE KEM PPO Medicare [id number] 600
--- OUTSIDE RECORDS SUMMARY | 2024-07-14 15:02 | XMS_ITS | Continuity of Care Document ---
Author Name [facility] Organization [facility] Care Team Providers Care President & Ceo Name Role Phone [facility] Unavailable Unavailable Encounters Combined list of: 1) Encounters from Department of Veterans Affairs facilities going back up to thelast 18 months. 2) Encounters from the Department of [facility] facilities going back up to 280 months. Location Location Details Encounter Type Encounter Number Reason For Visit Attending Provider ADM Date DC Date Status Disposition Source [facility] Outpatient Encounter [id number] 01/[address] [facility] Outpatient Encounter [id number] 01/[address] [facility] N
== END 2024-07-12 00:54 | disposition home or self-care (01) ==
PROVIDERS: Emergency Provider Emergency Medicine; PCP Family Medicine
DX: N17.9 Acute kidney failure, unspecified (principal); E86.0 Dehydration; R55 Syncope and collapse; Z20.822 Contact with and (suspected) exposure to COVID-19; L40.9 Psoriasis, unspecified; F17.210 Nicotine dependence, cigarettes, uncomplicated; R00.1 Bradycardia, unspecified; I49.1 Atrial premature depolarization; R94.31 Abnormal electrocardiogram [ECG] [EKG]
CPT/HCPCS: 36415; 80048; 80053; 83690; 83735; 84484; 85025; 87637; 93005; 96360; 96361; 99284; J7030

== ENCOUNTER 2024-07-27 11:01 | Outpatient (CLI) | payer MEDICARE, SELFPAY ==
--- NOTE | ~2024-07-27 | XR_ITS ---
Clinical Indication: Smoking, cough PA and lateral views of the chest: Comparison: 06/26/2013 Findings: The lungs are clear, without evidence of focal consolidation or pleural effusion. Cardiome diastinal silhouette is within normal limits. Bones and soft tissues are unremarkable. Impression: Normal chest. Reviewed, dictated and finalized at location . TH PLATER Impression: Normal chest.
[2024-07-27 11:54] LABS: Alanine Aminotransferase 21 U/L (6-50); Albumin Level 4.1 g/dL (3.5-5.1); Alkaline Phosphatase 70 U/L (38-126); Anion Gap 17 mmol/L (4-12); Aspartate Amino Transferase 20 U/L (17-59); Bilirubin,Total 0.5 mg/dL (0.2-1.3); Blood Urea Nitrogen 59 mg/dL (9-20); Calcium 9.3 mg/dL (8.4-10.2); Carbon Dioxide 18 mmol/L (22-30); Chloride 105 mmol/L (98-107); Estimated Glomerular Filt Rate 27; Glucose 141 mg/dL (65-110); Potassium 4.4 mmol/L (3.4-5.0); Sodium 140 mmol/L (137-145)
--- OUTSIDE RECORDS SUMMARY | 2024-07-27 12:41 | XMS_ITS | CONTINUITY OF CARE DOCUMENT ---
Author Name yisel morillo Address Unknown Organization [facility] Address [address] [place] [address] Phone [phone] Care Team Providers Care Ethologist Name Role Phone Migue Hill MD Unavailable [phone] Migue Hill MD Unavailable [phone] INSURANCE PROVIDERS Payer name Policy type / Coverage type uQin red alliance party ID AETNA MEDICARE KEM PPO Medicare [id number] 600
--- OUTSIDE RECORDS SUMMARY | 2024-07-27 12:41 | XMS_ITS | Clinical Summary ---
Author Organization [facility] [address] Address [address] [place] [address] Care Team Providers Care Spray Maker Name Role Phone Enmanuel Martinez MD Unavailable [phone] Rolando Reed MD Primary Care Provider [...] 04/05/2024 Assessment & Plan (04/26/2024 11:38 AM SHALE PLANER OPERATOR HELPER): Tai is a pleasant 73-year-old male that [...] 04/05/2024 Assessment & Plan (04/26/2024 11:38 AM SHALE PLANER OPERATOR HELPER): History consistent with intermittent gout flares affecting [...] Department Care Team Description 04/28/2024 Orders Only [facility] [address] [place] [phone] Clay Morales PA 04/26/2024 11:00 AM SHALE PLANER OPERATOR HELPER Office Visit [facility] [address] [place] [phone] Clay Morales PA Acute left-sided low back pain, unspecified whether sciatica present (Primary Dx); 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, subsequent encounter; 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 04/26/2024 Telephone [facility] [address] [place] [phone] Harriet Rai from Last 3 Months [...] Comments Blood Pressure 110/70 04/26/2024 10:49 AM SHALE PLANER OPERATOR HELPER Pulse 63 04/26/2024 10:49 AM SHALE PLANER OPERATOR HELPER Temperature 36.8 ??C (98.2 ??F) 05/03/2020 11:[address] Respiratory Rate - - Oxygen Saturation 96% 04/26/2024 10:49 AM SHALE PLANER OPERATOR HELPER Inhaled Oxygen Concentration - - Weight 82.8 kg (182 lb 9.6 oz) 04/26/2024 10:49 AM SHALE PLANER OPERATOR HELPER Height 177.8 cm (5' 10 ) 04/26/2024 10:49 AM SHALE PLANER OPERATOR HELPER Body Mass Index 26.2 04/26/2024 10:49 AM SHALE PLANER OPERATOR HELPER Plan of Treatment Health Maintenance Due Date [...] Comments SCAN - RADIOLOGY/IMAGING 04/28/2024 4:01 PM SHALE PLANER OPERATOR HELPER from Last 3 Months Results * SCAN - RADIOLOGY/IMAGING (04/28/2024 4:01 PM SHALE PLANER OPERATOR HELPER) Anatomical Region Laterality Modality Other Clay CERNA Final R esult from Last 3 Months Insurance [facility] MEDICARE AETNA MEDICARE Care Teams Spray Maker Relationship Specialty Start Date End Date Rolando Reed MD [address] [place] [address] PCP - General Family Medicine 03/09/24 Enmanuel Martinez MD [address] [place] [address] Consulting Physician Rheumatology 03/09/24
--- OUTSIDE RECORDS SUMMARY | 2024-07-27 12:41 | XMS_ITS | Continuity of Care Document ---
Author Name [facility] Organization [facility] Care Team Providers Care Is Support Analyst Name Role Phone [facility] Unavailable Unavailable Encounters Combined list of: 1) Encounters from Department of Veterans Affairs facilities going back up to thelast 18 months. 2) Encounters from the Department of [facility] facilities going back up to 280 months. Location Location Details Encounter Type Encounter Number Reason For Visit Attending Provider ADM Date DC Date Status Disposition Source [facility] Outpatient Encounter [id number] 01/12 [facility] Outpatient Encounter [id number] 01/21 [facility] N
--- OUTSIDE RECORDS SUMMARY | 2024-07-27 12:41 | XMS_ITS | Referral Summary ---
Author Organization [facility] [address] Address [address] [place] [address] Care Team Providers Care Retort Press Operator Name Role Phone Enmanuel Martinez MD Unavailable [phone] Rolando Reed MD Primary Care Provider Encounters Date Type Department Care Team Description 04/28/2024 Orders Only [facility] [address] [place] [phone] Clay Morales PA 04/26/2024 Telephone [facility] [address] [place] [phone] Harriet Rai 04/26/2024 11:00 AM ENGINEER/CONDUCTOR Office Visit [facility] [address] [place] [phone] Clay Morales PA Acute left-sided low [...] 04/05/2024 Assessment & Plan (04/26/2024 11:38 AM ENGINEER/CONDUCTOR): Tai is a pleasant 73-year-old male that [...] 04/05/2024 Assessment & Plan (04/26/2024 11:38 AM ENGINEER/CONDUCTOR): History consistent with intermittent gout flares affecting [...] Comments Blood Pressure 110/70 04/26/2024 10:49 AM ENGINEER/CONDUCTOR Pulse 63 04/26/2024 10:49 AM ENGINEER/CONDUCTOR Temperature 36.8 ??C (98.2 ??F) 05/03/2020 11:[address] Respiratory Rate - - Oxygen Saturation 96% 04/26/2024 10:49 AM ENGINEER/CONDUCTOR Inhaled Oxygen Concentration - - Weight 82.8 kg (182 lb 9.6 oz) 04/26/2024 10:49 AM ENGINEER/CONDUCTOR Height 177.8 cm (5' 10 ) 04/26/2024 10:49 AM ENGINEER/CONDUCTOR Body Mass Index 26.2 04/26/2024 10:49 AM ENGINEER/CONDUCTOR Plan of Treatment Not on file Procedures Procedure Name Priority Date/Time Associated Diagnosis Comments SCAN - RADIOLOGY/IMAGING 04/28/2024 4:01 PM ENGINEER/CONDUCTOR from Last 3 Months Results * SCAN - RADIOLOGY/IMAGING (04/28/2024 4:01 PM ENGINEER/CONDUCTOR) Anatomical Region Laterality Modality Other Clay CERNA Final R esult from Last 3 Months Insurance AETNA MEDICARE AETNA MEDICARE Care Teams Retort Press Operator Relationship Specialty Start Date End Date Rolando Reed MD [address] [facility] [address] [place] [address] PCP - General Family Medicine 03/09/24 Enmanuel Martinez MD [address] [place] [address] Consulting Physician Rheumatology 03/09/24
[2024-07-27 13:05] LABS: Hemoglobin A1C 6.9 % (<5.7)
== END 2024-07-27 11:02 | disposition home or self-care (01) ==
LOC: ANHLAB 11:02
PROVIDERS: PCP Family Medicine; Visit Provider Family Medicine
DX: R05.9 Cough, unspecified (principal); E11.9 Type 2 diabetes mellitus without complications
CPT/HCPCS: 36415; 71046; 80053; 83036

== ENCOUNTER 2024-08-11 14:20 | Outpatient (CLI) | payer MEDICARE, SELFPAY ==
--- NOTE | ~2024-08-11 | US_ITS ---
EXAMINATION: US carotid duplex BI DATE: 08/11/2024 15:02 INDICATION: Transient ischemic attack. TECHNIQUE: Grayscale, color Doppler, and pulsed Doppler images of the cervical carotid arteries were obtained. The degree of vessel stenosis is placed in one of the following categories: normal, <50%, 5 0-69%, >=70% but less than near-occlusion, near-occlusion, or total occlusion. Note that percent sten osis relative to normal distal artery lumen diameter is indirectly measured from velocity measurement s as described by Abdi, et al. Radiology 2003; 229:340-346. COMPARISON: None. FINDINGS: RIGHT: The right common carotid artery (CCA) peak systolic velocity (PSV) is 104 cm/s. The right internal ca rotid artery (ICA) PSV is 153 cm/s. The right ICA end-diastolic velocity (EDV) is 23 cm/s. The right ICA/CCA PSV ratio is 1.5. Grayscale and color Doppler images yield an estimate of <50% diameter reduc tion from plaque in the ICA. There is antegrade flow in the right vertebral artery. LEFT: The left CCA PSV is 78 cm/s. The left ICA PSV is 101 cm/s. The left ICA EDV is 33 cm/s. The left ICA/ CCA PSV ratio is 1.3. Grayscale and color Doppler images yield an estimate of <50% diameter reduction from plaque in the ICA. There is antegrade flow in the left vertebral artery. IMPRESSION: 1. <50% stenosis in the right internal carotid artery. 2. <50% stenosis in the left internal carotid artery. Reviewed, dictated and finalized at location A. ER COVERER
--- NOTE | ~2024-08-11 | CT_ITS ---
EXAMINATION: CT brain wo con DATE: 08/11/2024 14:58 INDICATION: Transient cerebral ischemic attack, unspecified. TECHNIQUE: Computed tomography (CT) of the head was performed without intravenous contrast. The mA wa s adjusted according to patient size. Iterative reconstruction technique was employed. The dose-lengt h product was 605.33 mGy-cm. COMPARISON: None FINDINGS: There are scattered areas of low attenuation in the cerebral white matter. There is no intr acranial hemorrhage, acute infarction, or abnormal intracranial mass lesion. The ventricles are nancy l in size. The orbits are normal. There is mild mucosal thickening in the paranasal sinuses. The mast oid air cells are normal. IMPRESSION: 1. Extensive nonspecific cerebral white matter disease, which likely represents chronic small vessel ischemic disease. Reviewed, dictated and finalized at location A. MUD MOLDER
--- OUTSIDE RECORDS SUMMARY | 2024-08-11 14:24 | XMS_ITS | Clinical Summary ---
Author Organization [facility] [address] Address [address] [place] [address] Care Team Providers Care Uke Driver Name Role Phone Enmanuel Martinez MD Unavailable [phone] Rolando Reed MD Primary Care Provider [...] 04/05/2024 Assessment & Plan (04/26/2024 11:38 AM MAPLE PRODUCTS SUPERVISOR): Tai is a pleasant 73-year-old male that [...] 04/05/2024 Assessment & Plan (04/26/2024 11:38 AM MAPLE PRODUCTS SUPERVISOR): History consistent with intermittent gout flares affecting [...] could consider resuming allopurinol at that point. Surgical History Surgery Date Site/Laterality Comments BACK [...] Comments Blood Pressure 110/70 04/26/2024 10:49 AM MAPLE PRODUCTS SUPERVISOR Pulse 63 04/26/2024 10:49 AM MAPLE PRODUCTS SUPERVISOR Temperature 36.8 C (98.2 F) 05/03/2020 11:07 AM MAPLE PRODUCTS SUPERVISOR Respiratory Rate - - Oxygen Saturation 96% 04/26/2024 10:49 AM MAPLE PRODUCTS SUPERVISOR Inhaled Oxygen Concentration - - Weight 82.8 kg (182 lb 9.6 oz) 04/26/2024 10:49 AM MAPLE PRODUCTS SUPERVISOR Height 177.8 cm (5' 10 ) 04/26/2024 10:49 AM MAPLE PRODUCTS SUPERVISOR Body Mass Index 26.2 04/26/2024 10:49 AM MAPLE PRODUCTS SUPERVISOR Plan of Treatment Health Maintenance Due Date Last Done Comments Colon Cancer Screening-Colonoscopy 1950 Depression Screening 1950 Fall Risk Assessment 1950 Hepatitis C Screening 1950 Prostate Cancer Screening-PSA 1950 DTaP/Tdap/Td Vaccine (1 - Tdap) 11/14/1962 Hepatitis B Screening 11/14/1969 Pneumococcal vaccine 65+ (1 of 1 - PCV) 11/14/2001 Zoster Vaccine (1 of 2) 11/14/2001 Abdominal Aortic Aneurysm (AAA) Screen 11/14/2016 Well Visit 65+ 11/14/2016 Influenza Vaccine (#1) 2024 03/28/2020 Insurance [facility] MEDICARE AETNA MEDICARE Care Teams Uke Driver Relationship Specialty Start Date End Date Rolando Reed MD [address] [facility] [address] [place] [address] PCP - General Family Medicine 03/09/24 Enmanuel Martinez MD [address] [place] [address] Consulting Physician Rheumatology 03/09/24
--- OUTSIDE RECORDS SUMMARY | 2024-08-11 14:24 | XMS_ITS | Referral Summary ---
Author Organization [facility] [place] [facility] [address] Address [address] [place] [address] Care Team Providers Care Manufacturing Project Engineer Name Role Phone Enmanuel Martinez MD Unavailable [phone] Rolando Reed MD Primary Care Provider [...] 04/05/2024 Assessment & Plan (04/26/2024 11:38 AM DIRECTOR SOFTWARE QUALITY ASSURANCE): Tai is a pleasant 73-year-old male that [...] 04/05/2024 Assessment & Plan (04/26/2024 11:38 AM DIRECTOR SOFTWARE QUALITY ASSURANCE): History consistent with intermittent gout flares affecting [...] Comments Blood Pressure 110/70 04/26/2024 10:49 AM DIRECTOR SOFTWARE QUALITY ASSURANCE Pulse 63 04/26/2024 10:49 AM DIRECTOR SOFTWARE QUALITY ASSURANCE Temperature 36.8 C (98.2 F) 05/03/2020 11:07 AM DIRECTOR SOFTWARE QUALITY ASSURANCE Respiratory Rate - - Oxygen Saturation 96% 04/26/2024 10:49 AM DIRECTOR SOFTWARE QUALITY ASSURANCE Inhaled Oxygen Concentration - - Weight 82.8 kg (182 lb 9.6 oz) 04/26/2024 10:49 AM DIRECTOR SOFTWARE QUALITY ASSURANCE Height 177.8 cm (5' 10 ) 04/26/2024 10:49 AM DIRECTOR SOFTWARE QUALITY ASSURANCE Body Mass Index 26.2 04/26/2024 10:49 AM DIRECTOR SOFTWARE QUALITY ASSURANCE Plan of Treatment Not on file Insurance AETNA MEDICARE [facility] MEDICARE Care Teams Manufacturing Project Engineer Relationship Specialty Start Date End Date Rolando Reed MD [address] [place] [address] PCP - General Family Medicine 03/09/24 Enmanuel Martinez MD [address] [facility] [place] [address] Consulting Physician Rheumatology 03/09/24
--- OUTSIDE RECORDS SUMMARY | 2024-08-11 14:24 | XMS_ITS | Continuity of Care Document ---
Author Name [facility] Organization [facility] Care Team Providers Care Applications Specialist Name Role Phone [facility] Unavailable Unavailable Encounters Combined list of: 1) Encounters from Department of Veterans Affairs facilities going backup to the last 18 months, not all VA inpatient encounters are included; 2) Encounters from the Department of [employer] facilities going backup to 280 months. Location Location Details Encounter Type Encounter Number Reason For Visit Attending Provider ADM Date DC Date Status Disposition Source [facility] Outpatient Encounter [id number] 01/12 [facility] Brunson [facility] Outpatient Encounter [id number] 1 01/21 [facility]
== END 2024-08-11 14:21 | disposition home or self-care (01) ==
PROVIDERS: PCP Family Medicine; Visit Provider Family Medicine
DX: R55 Syncope and collapse (principal); R09.82 Postnasal drip; I65.23 Occlusion and stenosis of bilateral carotid arteries
CPT/HCPCS: 70450; 93880

== ENCOUNTER 2024-09-06 15:18 | Outpatient (CLI) | payer MEDICARE, SELFPAY ==
[2024-09-06 15:58] LABS: Alanine Aminotransferase 24 U/L (6-50); Alkaline Phosphatase 78 U/L (38-126); Anion Gap 9 mmol/L (4-12); Aspartate Amino Transferase 25 U/L (17-59); Bilirubin,Total 0.3 mg/dL (0.2-1.3); Blood Urea Nitrogen 46 mg/dL (9-20); Calcium 9.3 mg/dL (8.4-10.2); Carbon Dioxide 26 mmol/L (22-30); Chloride 105 mmol/L (98-107); Estimated Glomerular Filt Rate 34; Glucose 91 mg/dL (65-110); Potassium 5.8 mmol/L (3.4-5.0); Sodium 140 mmol/L (137-145)
--- OUTSIDE RECORDS SUMMARY | 2024-09-06 17:14 | XMS_ITS | CONTINUITY OF CARE DOCUMENT ---
Author Name yisel morillo Address Unknown Organization [facility] Address [address] [place] [address] Phone [phone] Care Team Providers Care Marking Machine Tender Name Role Phone Migue Hill MD Unavailable [phone] Migue Hill MD Unavailable [phone] INSURANCE PROVIDERS Payer name Policy type / Coverage type [place] red constitution party ID AETNA MEDICARE KEM PPO Medicare [id number]
--- OUTSIDE RECORDS SUMMARY | 2024-09-06 17:15 | XMS_ITS | Continuity of Care Document ---
Author Name [facility] Organization [facility] Care Team Providers Care Financial Institution Vice President Name Role Phone [facility] Unavailable Unavailable Encounters Combined list of: 1) Encounters from Department of Veterans Affairs facilities going backup to the last 18 months, not all VA inpatient encounters are included; 2) Encounters from the Department of [employer] facilities going backup to 280 months. Location Location Details Encounter Type Encounter Number Reason For Visit Attending Provider ADM Date DC Date Status Disposition Source [facility] Outpatient Encounter [id number] 01/12 [facility] Brunson [facility] Outpatient Encounter [id number] 01/21 [facility]
--- OUTSIDE RECORDS SUMMARY | 2024-09-06 17:15 | XMS_ITS | Clinical Summary ---
Author Organization [facility] [address] Address [address] [place] [address] Care Team Providers Care Kitchen Porter Name Role Phone Enmanuel Martinez MD Unavailable [phone] Rolando Reed MD Primary Care Provider [...] 04/05/2024 Assessment & Plan (04/26/2024 11:38 AM TELECOMMUNICATOR): Tai is a pleasant 73-year-old male that [...] 04/05/2024 Assessment & Plan (04/26/2024 11:38 AM TELECOMMUNICATOR): History consistent with intermittent gout flares affecting [...] Comments Blood Pressure 110/70 04/26/2024 10:49 AM TELECOMMUNICATOR Pulse 63 04/26/2024 10:49 AM TELECOMMUNICATOR Temperature 36.8 C (98.2 F) 05/03/2020 11:07 AM TELECOMMUNICATOR Respiratory Rate - - Oxygen Saturation 96% 04/26/2024 10:49 AM TELECOMMUNICATOR Inhaled Oxygen Concentration - - Weight 82.8 kg (182 lb 9.6 oz) 04/26/2024 10:49 AM TELECOMMUNICATOR Height 177.8 cm (5' 10 ) 04/26/2024 10:49 AM TELECOMMUNICATOR Body Mass Index 26.2 04/26/2024 10:49 AM TELECOMMUNICATOR Plan of Treatment Health Maintenance Due Date [...] 11/14/2016 Influenza Vaccine (#1) 2024 03/28/2020 Insurance [facility] MEDICARE [facility] MEDICARE Address: [facility] [id number] [place] [phone] AETNA MEDICARE Care Teams Kitchen Porter Relationship Specialty Start Date End Date Rolando Reed MD [address] [facility] [address] [place] [address] PCP - General Family Medicine 03/09/24 Enmanuel Martinez MD [address] [place] [address] Consulting Physician Rheumatology 03/09/24
--- OUTSIDE RECORDS SUMMARY | 2024-09-06 17:15 | XMS_ITS | Referral Summary ---
Author Organization [facility] [place] [address] Address [address] [place] [address] Care Team Providers Care Instrument Worker Name Role Phone Enmanuel Martinez MD Unavailable [phone] Rolando Reed MD Primary Care Provider [...] 04/05/2024 Assessment & Plan (04/26/2024 11:38 AM ASSISTANT COUNTY ENGINEER): Tai is a pleasant 73-year-old male that [...] 04/05/2024 Assessment & Plan (04/26/2024 11:38 AM ASSISTANT COUNTY ENGINEER): History consistent with intermittent gout flares affecting [...] Comments Blood Pressure 110/70 04/26/2024 10:49 AM ASSISTANT COUNTY ENGINEER Pulse 63 04/26/2024 10:49 AM ASSISTANT COUNTY ENGINEER Temperature 36.8 C (98.2 F) 05/03/2020 11:07 AM ASSISTANT COUNTY ENGINEER Respiratory Rate - - Oxygen Saturation 96% 04/26/2024 10:49 AM ASSISTANT COUNTY ENGINEER Inhaled Oxygen Concentration - - Weight 82.8 kg (182 lb 9.6 oz) 04/26/2024 10:49 AM ASSISTANT COUNTY ENGINEER Height 177.8 cm (5' 10 ) 04/26/2024 10:49 AM ASSISTANT COUNTY ENGINEER Body Mass Index 26.2 04/26/2024 10:49 AM ASSISTANT COUNTY ENGINEER Plan of Treatment Not on file Insurance AETNA MEDICARE [facility] MEDICARE Care Teams Instrument Worker Relationship Specialty Start Date End Date Rolando Reed MD [address] [place] [address] PCP - General Family Medicine 03/09/24 Enmanuel Martinez MD [address] [facility] [place] [address] Consulting Physician Rheumatology 03/09/24
== END 2024-09-06 15:19 | disposition home or self-care (01) ==
PROVIDERS: PCP Family Medicine; Visit Provider Family Medicine
DX: N18.30 Chronic kidney disease, stage 3 unspecified (principal)
CPT/HCPCS: 36415; 80053

== ENCOUNTER 2024-09-23 12:30 | Outpatient (CLI) | payer MEDICARE, SELFPAY ==
--- OUTSIDE RECORDS SUMMARY | 2024-09-23 12:33 | XMS_ITS | Referral Summary ---
Author Organization [facility] [place] [address] Address [address] [place] [address] Care Team Providers Care Patent Solicitor Name Role Phone Enmanuel Martinez MD Unavailable [phone] Rolando Reed MD Primary Care Provider [...] 04/05/2024 Assessment & Plan (04/26/2024 11:38 AM PICKER PACKER): Tai is a pleasant 73-year-old male that [...] 04/05/2024 Assessment & Plan (04/26/2024 11:38 AM PICKER PACKER): History consistent with intermittent gout flares affecting [...] Comments Blood Pressure 110/70 04/26/2024 10:49 AM PICKER PACKER Pulse 63 04/26/2024 10:49 AM PICKER PACKER Temperature 36.8 C (98.2 F) 05/03/2020 11:07 AM PICKER PACKER Respiratory Rate - - Oxygen Saturation 96% 04/26/2024 10:49 AM PICKER PACKER Inhaled Oxygen Concentration - - Weight 82.8 kg (182 lb 9.6 oz) 04/26/2024 10:49 AM PICKER PACKER Height 177.8 cm (5' 10 ) 04/26/2024 10:49 AM PICKER PACKER Body Mass Index 26.2 04/26/2024 10:49 AM PICKER PACKER Plan of Treatment Not on file Insurance AETNA MEDICARE [facility] MEDICARE Care Teams Patent Solicitor Relationship Specialty Start Date End Date Rolando Reed MD [address] [place] [address] PCP - General Family Medicine 03/09/24 Enmanuel Martinez MD [address] [facility] [place] [address] Consulting Physician Rheumatology 03/09/24
--- OUTSIDE RECORDS SUMMARY | 2024-09-23 12:33 | XMS_ITS | CONTINUITY OF CARE DOCUMENT ---
Author Name yisel morillo Address Unknown Organization [facility] Address [address] [place] [address] Phone [phone] Care Team Providers Care Sales Team Member Name Role Phone Migue Hill MD Unavailable [phone] Migue Hill MD Unavailable [phone] INSURANCE PROVIDERS Payer name Policy type / Coverage type [place] red green party ID AETNA MEDICARE KEM PPO Medicare [id number]
--- OUTSIDE RECORDS SUMMARY | 2024-09-23 12:33 | XMS_ITS | Continuity of Care Document ---
Author Name [facility] Organization [facility] Care Team Providers Care Steel Tester Name Role Phone [facility] Unavailable Unavailable Encounters Combined list of: 1) Encounters from Department of Veterans Affairs facilities going backup to the last 18 months, not all VA inpatient encounters are included; 2) Encounters from the Department of [employer]ignment [employer] facilities going backup to 280 months. Location Location Details Encounter Type Encounter Number Reason For Visit Attending Provider ADM Date DC Date Status Disposition Source [facility] Outpatient Encounter [id number] 01/12 [facility] Brunsno [facility] Outpatient Encounter [id number] 01/21 [facility]
--- OUTSIDE RECORDS SUMMARY | 2024-09-23 12:33 | XMS_ITS | Clinical Summary ---
Author Organization [facility] [address] Address [address] [place] [address] Care Team Providers Care Clin Application Specialist Name Role Phone Enmanuel Martinez MD Unavailable [phone] Rolando Reed MD Primary Care Provider [...] 04/05/2024 Assessment & Plan (04/26/2024 11:38 AM CIRCULATION ANALYST): Tai is a pleasant 73-year-old male that [...] 04/05/2024 Assessment & Plan (04/26/2024 11:38 AM CIRCULATION ANALYST): History consistent with intermittent gout flares affecting [...] Comments Blood Pressure 110/70 04/26/2024 10:49 AM CIRCULATION ANALYST Pulse 63 04/26/2024 10:49 AM CIRCULATION ANALYST Temperature 36.8 C (98.2 F) 05/03/2020 11:07 AM CIRCULATION ANALYST Respiratory Rate - - Oxygen Saturation 96% 04/26/2024 10:49 AM CIRCULATION ANALYST Inhaled Oxygen Concentration - - Weight 82.8 kg (182 lb 9.6 oz) 04/26/2024 10:49 AM CIRCULATION ANALYST Height 177.8 cm (5' 10 ) 04/26/2024 10:49 AM CIRCULATION ANALYST Body Mass Index 26.2 04/26/2024 10:49 AM CIRCULATION ANALYST Plan of Treatment Health Maintenance Due Date [...] 11/14/2016 Influenza Vaccine (#1) 2024 03/28/2020 Insurance [facility] MEDICARE [facility] MEDIC[facility] Address: [facility] [id number] [place] [phone] AETNA MEDICARE Care Teams Clin Application Specialist Relationship Specialty Start Date End Date Rolando Reed MD [address] [facility] [address] [place] [address] PCP - General Family Medicine 03/09/24 Enmanuel Martinez MD [address] [place] [address] Consulting Physician Rheumatology 03/09/24
[2024-09-23 13:48] LABS: Anion Gap 9 mmol/L (4-12); Blood Urea Nitrogen 30 mg/dL (9-20); Calcium 9.1 mg/dL (8.4-10.2); Carbon Dioxide 27 mmol/L (22-30); Chloride 105 mmol/L (98-107); Estimated Glomerular Filt Rate 37; Glucose 114 mg/dL (65-110); Potassium 4.1 mmol/L (3.4-5.0); Sodium 141 mmol/L (137-145)
== END 2024-09-23 12:31 | disposition home or self-care (01) ==
PROVIDERS: PCP Family Medicine; Visit Provider Physician Assistant
DX: E87.5 Hyperkalemia (principal)
CPT/HCPCS: 36415; 80048

== ENCOUNTER 2024-12-05 15:00 | Emergency (ER) | payer MEDICARE, SELFPAY ==
--- NOTE | ~2024-12-05 | XR_ITS ---
CHEST RADIOGRAPH CLINICAL HISTORY: SOB . COMPARISON: 07/27/2024 TECHNIQUE: Single portable view of the chest. FINDINGS: The cardiomediastinal silhouette is unremarkable. The lungs are clear. IMPRESSION: No focal infiltrate or effusion. Reviewed, dictated and finalized at location A.
[2024-12-05 15:11] VITALS: BP 95/59; PULSE 66; RESP 18; TEMP 36.7; O2SAT 100
--- NOTE | 2024-12-05 15:34 | ECG_ITS ---
Test Date: 2024-12-05 15:36:51 Measurements Intervals [place] Rate: 63 P: 31 NC: 159 QRS: -9 QRSD: 86 T: -45 QT: 379 QTc: 391 Interpretive Statements SINUS RHYTHM T WAVE ABNORMALITY IN ANTEROLAT/INF LEADS- CONSIDER ISCHEMIA BASELINE ARTIFACT- I, II, III, AVR, AVL, AVF, V1-V6 ABNORMAL ECG Compared to ECG 07/11/2024 20:15:26 HEART RATE HAS INCREASED Possible ischemia now present Electronically Signed On 12-05-2024 16:13:59 CDT by Obinna Gomez D.O.
[2024-12-05 15:48] VITALS: BP 109/79; PULSE 63; RESP 20; TEMP 36.7; O2SAT 100
[2024-12-05 15:51] VITALS: PULSE 65
--- OUTSIDE RECORDS SUMMARY | 2024-12-05 16:09 | XMS_ITS | Clinical Summary ---
Author Organization [facility] [place] [facility] [address] Address [address] [place] [address] Care Team Providers Care Fisher Pound Net Or Trap Name Role Phone Enmanuel Martinez MD Unavailable [phone] Rolando Reed MD Primary Care Provider [...] by mouth daily 30 tablet 1 04/26/2024 Active Active Problems Problem Noted Date Diagnosed Date Acute left-sided low back pain 04/05/2024 Assessment & Plan (04/26/2024 11:38 AM MAT TESTER): Tai is a pleasant 73-year-old male that [...] 04/05/2024 Assessment & Plan (04/26/2024 11:38 AM MAT TESTER): History consistent with intermittent gout flares affecting [...] Comments Blood Pressure 110/70 04/26/2024 10:49 AM MAT TESTER Pulse 63 04/26/2024 10:49 AM MAT TESTER Temperature 36.8 C (98.2 F) 05/03/2020 11:07 AM MAT TESTER Respiratory Rate - - Oxygen Saturation 96% 04/26/2024 10:49 AM MAT TESTER Inhaled Oxygen Concentration - - Weight 82.8 kg (182 lb 9.6 oz) 04/26/2024 10:49 AM MAT TESTER Height 177.8 cm (5' 10) 04/26/2024 10:49 AM MAT TESTER Body Mass Index 26.2 04/26/2024 10:49 AM MAT TESTER Plan of Treatment Health Maintenance Due Date [...] 11/14/2016 Well Visit 65+ 11/14/2016 Influenza Vaccine (Season Ended) 2025 03/28/20 20 Insurance [facility] MEDICARE AETNA MEDICARE Care Teams Fisher Pound Net Or Trap Relationship Specialty Start Date End Date Rolando Reed MD [address] [facility] [address] [place] [address] PCP - General Family Medicine 03/09/24 Enmanuel Martinez MD [facility] [place] [address] Consulting Physician Rheumatology 03/09/24
--- OUTSIDE RECORDS SUMMARY | 2024-12-05 16:09 | XMS_ITS | Referral Summary ---
Author Organization [facility] [place] [address] Address [address] [place] [address] Care Team Providers Care Ore Dressing Engineer Name Role Phone Enmanuel Martinez MD Unavailable [phone] Rolando Reed MD Primary Care Provider [...] 04/05/2024 Assessment & Plan (04/26/2024 11:38 AM BADGER DISTILLER OPERATOR): Tai is a pleasant 73-year-old male that [...] 04/05/2024 Assessment & Plan (04/26/2024 11:38 AM BADGER DISTILLER OPERATOR): History consistent with intermittent gout flares affecting [...] Comments Blood Pressure 110/70 04/26/2024 10:49 AM BADGER DISTILLER OPERATOR Pulse 63 04/26/2024 10:49 AM BADGER DISTILLER OPERATOR Temperature 36.8 C (98.2 F) 05/03/2020 11:07 AM BADGER DISTILLER OPERATOR Respiratory Rate - - Oxygen Saturation 96% 04/26/2024 10:49 AM BADGER DISTILLER OPERATOR Inhaled Oxygen Concentration - - Weight 82.8 kg (182 lb 9.6 oz) 04/26/2024 10:49 AM BADGER DISTILLER OPERATOR Height 177.8 cm (5' 10) 04/26/2024 10:49 AM BADGER DISTILLER OPERATOR Body Mass Index 26.2 04/26/2024 10:49 AM BADGER DISTILLER OPERATOR Plan of Treatment Not on file Insurance AETNA MEDICARE Care Teams Ore Dressing Engineer Relationship Specialty Start Date End Date Rolando Reed MD [address] [place] [address] PCP - General Family Medicine 03/09/24 Enmanuel Martinez MD [address] [place] [address] Consulting Physician Rheumatology 03/09/24
--- OUTSIDE RECORDS SUMMARY | 2024-12-05 16:09 | XMS_ITS | CONTINUITY OF CARE DOCUMENT ---
Author Name yisel morillo Address Unknown Organization [facility] Address [address] [place] [address] Phone [phone] Care Team Providers Care Paintings Restorer Name Role Phone Migue Hill MD Unavailable [phone] Migue Hill MD Unavailable [phone] INSURANCE PROVIDERS Payer name Policy type / Coverage type [place] red democrat ID AETNA MEDICARE KEM PPO Medicare [id number]
--- OUTSIDE RECORDS SUMMARY | 2024-12-05 16:09 | XMS_ITS | Continuity of Care Document ---
Author Name [facility] Organization [facility] Care Team Providers Care Production Machine Shop Supervisor Name Role Phone [facility] Unavailable Unavailable Encounters Combined list of: 1) Encounters from Department of Veterans Affairs facilities going backup to the last 18 months, not all VA inpatient encounters are included; 2) Encounters from the Department of [employer] facilities going backup to 280 months. Location Location Details Encounter Type Encounter Number Reason For Visit Attending Provider ADM Date DC Date Status Disposition Source [facility] Outpatient Encounter [id number] 01/12 [facility]son [facility] Outpatient Encounter [id number] 01/21 [facility]
--- NOTE | 2024-12-05 16:24 | ED_ITS ---
HPI - General Adult General Chief complaint: Weakness Stated complaint: weakness, diarrhea Time Seen by Provider: 12/05/24 15:41 History of Present Illness HPI narrative: 74-year-old male present to the emergency department for evaluation for approximately 2 weeks of increased generalized weakness. Patient states he has had some cough and congestion over this 2 week. But he has also had some burning with urination. Patient reports he has been eating and drinking okay but has been having increased diarrhea. Related Data Allergies Allergy/AdvReac Type Severity Reaction Status Date / Time No Known Allergies Allergy Verified 12/05/24 15:51 Review of Systems 2 Review of Systems: All systems reviewed & are unremarkable except as noted in HPI and below PMFSH Past Medical History Medical History (Updated 12/05/24 @ 18:27 by Travon Mathur MD) Hypertensive CKD (chronic kidney disease) DM renal manif type II Psoriasis Surgical History Surgical History History of lumbar surgery Family History Family History Mother Family history of kidney disease Diabetes mellitus Hypertension Family history of cardiovascular disease Father Hypertension Family history of lymphoma Sibling Family history of malignant neoplasm of breast in first degree relative Social History Social History Smoking packs per day: 0.5 Smoking cigarettes per day: 10.0 Years smoked: 15 Smoking pack-years: 7.50 Smoking status: Current every day smoker Tobacco type: cigarettes Second hand tobacco smoke exposure: Yes Alcohol intake: current Substance use: never Substance use type: does not use Living arrangements: with family Occupation/Education: retired Gender identity (if verbalized by the patient): Male Sexual Orientation (if Verbalized by the Patient): Straight or Heterosexual Exam 2 Narrative: APPEARANCE: Well appearing, no pain, no distress, well-nourished. HEAD: normocephalic, atraumatic. EYES: PERRLA/EOMI, conjunctivae clear. NOSE: Normal no drainage EARS:TMS clear with good light reflex. THROAT: Pharynx clear, no exudate. NECK: Supple. No adenopathy, no masses. RESPIRATORY: Airway patent, respirations nonlabored. Clear to auscultation bilaterally, no rales, rhonchi, wheezing. CARDIOVASCULAR: Regular rate and rhythm without murmurs rubs or gallops. ABDOMINAL: Soft, nontender, nondistended, normal bowel sounds MUSCULOSKELETAL: Moves all extremities. Strength/ROM intact, No edema, No calf tenderness. NEURO: Alert. Cranial nerves II through XII intact. Grossly intact SKIN: Warm, dry. Normal Color Course Vital Signs Vital signs: Vital Signs Temperature 98.0 F 12/05/24 15:11 Pulse Rate 66 12/05/24 15:11 Respiratory Rate 18 12/05/24 15:11 Blood Pressure 95/59 L 12/05/24 15:11 Pulse Oximetry 100 12/05/24 15:11 Oxygen Delivery Room Air 12/05/24 15:11 Temperature 98.0 F 12/05/24 15:48 Pulse Rate 76 12/05/24 17:42 Respiratory Rate 18 12/05/24 17:42 Blood Pressure 103/54 L 12/05/24 17:42 Pulse Oximetry 100 12/05/24 17:42 Oxygen Delivery Room Air 12/05/24 15:48 Medical Decision Making MDM Narrative Medical decision making narrative: 74-year-old male presents to the emergency department for a burning with urination. Patient is afebrile but does have a leukocytosis of 10.8 and a hemoglobin 11.8. INR of 1.0. Patient does have a creatinine of creatinine of 2.24 which is mildly elevated compared to baseline. Patient did have a mildly elevated potassium but was treated with a L of normal saline. Urine was significant for urinary tract infection and patient was treated with 1 g of IV Rocephin. Patient is also Keflex for home. Patient states he does feel strong enough for discharge home on his were questioned to be discharged. Patient and family are comfortable plan for discharge and close follow-up. All questions concerns were addressed. Differential Diagnosis Differential Diagnosis: UTI, COVID, RSV, influenza, dehydration, acute kidney injury, chronic kidney disease Vital Signs Vital Signs: Vital Signs Temperature 98.0 F 12/05/24 15:11 Pulse Rate 66 12/05/24 15:11 Respiratory Rate 18 12/05/24 15:11 Blood Pressure 95/59 L 12/05/24 15:11 Pulse Oximetry 100 12/05/24 15:11 Oxygen Delivery Room Air 12/05/24 15:11 Temperature 98.0 F 12/05/24 15:48 Pulse Rate 76 12/05/24 17:42 Respiratory Rate 18 12/05/24 17:42 Blood Pressure 103/54 L 12/05/24 17:42 Pulse Oximetry 100 12/05/24 17:42 Oxygen Delivery Room Air 12/05/24 15:48 Lab Data Lab results reviewed: Yes I reviewed the patient's lab results. 12/05/24 16:18 12/05/24 16:18 Labs: Lab Results 12/05/24 12/05/24 12/05/24 Range/Units 16:18 16:19 16:30 WBC 10.8 H (4.5-10.0) K/mm3 RBC 4.26 L (4.6-6.20) M/mm3 Hgb 11.8 L (14.0-18.0) g/dL Hct 37.9 L (42.0-52.0) % MCV 89.0 (80-100) fl MCH 27.7 (26-34) pg MCHC 31.1 L (32-36) g/dl RDW 14.2 (11.5-14.5) % Plt Count 205 (150-375) k/mm3 MPV 10.1 (7.4-10.4) fl Immature Gran % (Auto) 0.5 (0-0.5) % Neut % (Auto) 82.0 H (45.5-73.1) % Lymph % (Auto) 5.9 L (18.3-44.2) % [place] % (Auto) 11.4 H (2.6-8.5) % Eos % (Auto) 0.0 (0-4.4) % Baso % (Auto) 0.2 (0.2-1.2) % Lymph # (Auto) 0.64 L (0.9-3.2) K/mm3 [place] # (Auto) 1.2 H (0.1-0.6) K/mm3 Eos # (Auto) 0.0 (0-0.3) K/mm3 Baso # (Auto) 0.0 (0.0-0.1) K/mm3 Abs Immat Gran (auto) 0.05 H (0.00-0.031) K/mm3 Absolute Neuts (auto) 8.9 H (1.3-6.7) K/mm3 Absolute Nucleated RBC 0.000 (0.0-0.012) K/mm3 Nucleated RBC % 0.0 (0.0-0.2) % PT 14.7 (11.1-14.7) Seconds INR 1.1 APTT 30.0 (22.3-36.8) Seconds Sodium 138 (137-145) mmol/L Potassium 5.2 H (3.4-5.0) mmol/L Chloride 103 (98-107) mmol/L Carbon Dioxide 26 (22-30) mmol/L Anion Gap 9 (4-12) mmol/L BUN 33 H (9-20) mg/dL Creatinine 2.24 H (0.7-1.3) mg/dL Estim Creat Clear Calc 28 ml/min Estimated GFR 29 L (59 - ) Glucose 138 H (65-110) mg/dL Calcium 9.2 (8.4-10.2) mg/dL Total Bilirubin 0.5 (0.2-1.3) mg/dL AST 37 (17-59) U/L ALT 18 (6-50) U/L Alkaline Phosphatase 78 (38-126) U/L Total Protein 7.8 (6.3-8.2) g/dL Albumin 4.1 (3.5-5.1) g/dL Urine Color Yellow (Yellow) Urine Appearance Turbid H (Clear) Urine pH 5.5 (5.0-9.0) Ur Specific [place] 1.015 (1.001-1.035) Urine Protein 3+ H (Negative) mg/dL Urine Glucose (UA) Negative (Negative) mg/dL Urine Ketones Trace H (Negative) mg/dL Ur Blood (Man) 2+ H (Negative) Urine Nitrate Positive H (Negative) Urine Bilirubin Negative (Negative) Urine Urobilinogen 1.0 (<2.0) mg/dL Add Ur Microanalysis Reviewed Leukocyte Esterase Rfl 3+ H (Negative) CYNTHIA/UL Urine RBC 21-50 H (0-2) /hpf Urine WBC >100 H (0-3) /hpf Ur Squamous Epith Cells Few (Few) /hpf Urine Bacteria 4+ H /hpf Urine Casts 6-10 Influenza A (RT-PCR) (Negative) Influenza B (RT-PCR) (Negative) RSV (RT-PCR) (Negative) SARS-CoV-2 RNA (RT-PCR) (Negative) 12/05/24 Range/Units 16:32 WBC (4.5-10.0) K/mm3 RBC (4.6-6.20) M/mm3 Hgb (14.0-18.0) g/dL Hct (42.0-52.0) % MCV (80-100) fl MCH (26-34) pg MCHC (32-36) g/dl RDW (11.5-14.5) % Plt Count (150-375) k/mm3 MPV (7.4-10.4) fl Immature Gran % (Auto) (0-0.5) % Neut % (Auto) (45.5-73.1) % Lymph % (Auto) (18.3-44.2) % [place] % (Auto) (2.6-8.5) % Eos % (Auto) (0-4.4) % Baso % (Auto) (0.2-1.2) % Lymph # (Auto) (0.9-3.2) K/mm3 [place] # (Auto) (0.1-0.6) K/mm3 Eos # (Auto) (0-0.3) K/mm3 Baso # (Auto) (0.0-0.1) K/mm3 Abs Immat Gran (auto) (0.00-0.031) K/mm3 Absolute Neuts (auto) (1.3-6.7) K/mm3 Absolute Nucleated RBC (0.0-0.012) K/mm3 Nucleated RBC % (0.0-0.2) % PT (11.1-14.7) Seconds INR APTT (22.3-36.8) Seconds Sodium (137-145) mmol/L Potassium (3.4-5.0) mmol/L Chloride (98-107) mmol/L Carbon Dioxide (22-30) mmol/L Anion Gap (4-12) mmol/L BUN (9-20) mg/dL Creatinine (0.7-1.3) mg/dL Estim Creat Clear Calc ml/min Estimated GFR (59 - ) Glucose (65-110) mg/dL Calcium (8.4-10.2) mg/dL Total Bilirubin (0.2-1.3) mg/dL AST (17-59) U/L ALT (6-50) U/L Alkaline Phosphatase (38-126) U/L Total Protein (6.3-8.2) g/dL Albumin (3.5-5.1) g/dL Urine Color (Yellow) Urine Appearance (Clear) Urine pH (5.0-9.0) Ur Specific [place] (1.001-1.035) Urine Protein (Negative) mg/dL Urine Glucose (UA) (Negative) mg/dL Urine Ketones (Negative) mg/dL Ur Blood (Man) (Negative) Urine Nitrate (Negative) Urine Bilirubin (Negative) Urine Urobilinogen (<2.0) mg/dL Add Ur Microanalysis Leukocyte Esterase Rfl (Negative) CYNTHIA/UL Urine RBC (0-2) /hpf Urine WBC (0-3) /hpf Ur Squamous Epith Cells (Few) /hpf Urine Bacteria /hpf Urine Casts Influenza A (RT-PCR) Negative (Negative) Influenza B (RT-PCR) Negative (Negative) RSV (RT-PCR) Negative (Negative) SARS-CoV-2 RNA (RT-PCR) Negative (Negative) Discharge Plan Discharge Clinical Impression: Urinary tract infection Patient Disposition: Home Condition: Stable Instructions: Antibiotic Form, Urinary Tract Infection in Men (DC) Additional Instructions: Antibiotics as directed until completed. Flomax as directed to prevent urinary retention. Pyridium as needed for any burning with urination. Have close follow-up with your primary care physician Patient Language: Bhutanese Prescriptions: New tamsulosin [Flomax] 0.4 mg capsule 0.4 mg PO DAILY 14 Days Qty: 14 0RF phenazopyridine [Pyridium] 100 mg tablet 100 mg PO TID PRN (Reason: pain) Qty: 6 0RF cephalexin 500 mg capsule 500 mg PO Q8H 7 Days Qty: 21 0RF No Action hydrocortisone 2.5 % cream 1 applic topical BID Qty: 453.6 1RF prednisone 10 mg tablet See Rx Instructions PO DAILY Qty: 15 0RF Rx Instructions: Take 2 tabs x 5 days, then 1 tab x 5 days ondansetron 4 mg tablet,disintegrating 4 mg PO Q8H PRN (Reason: nausea and vomiting) Qty: 10 0RF (DME) Blood Glucose Test Strip See Rx Instructions .ROUTE .MEDSUPPLY Qty: 100 3RF Rx Instructions: Use once daily to check blood sugar (DME) lancets Misc See Rx Instructions .ROUTE .MEDSUPPLY Qty: 100 2RF Rx Instructions: Use once daily to check blood sugar clobetasol 0.05 % shampoo 1 applic topical DAILY Qty: 118 0RF tadalafil 20 mg tablet 20 mg PO DAILY PRN (Reason: sexual activity) Qty: 30 0RF Rx Instructions: administer approximately 30min before sexual activity; do not use more than 1 dose per 24hrs indomethacin 25 mg capsule 50 mg PO TID Qty: 30 0RF Rx Instructions: Take 50mg TID x 3 days; Then decrease dosage to 25mg TID x 5-7 days as needed metformin 1,000 mg tablet 1,000 mg PO BID Qty: 180 2RF nebivolol [Bystolic] 5 mg tablet 5 mg PO DAILY Qty: 90 2RF atorvastatin 40 mg tablet 40 mg PO DAILY Qty: 90 3RF amlodipine-olmesartan 10-40 mg tablet 1 tablet PO DAILY Qty: 90 2RF Follow-up/Referrals: Rolando Reed MD [Primary Care Provider] -
[2024-12-05 16:30] LABS: Basophils Percent Auto 0.2 % (0.2-1.2); Hematocrit 37.9 % (42.0-52.0); Hemoglobin 11.8 g/dL (14.0-18.0); Immature Granulocyte Absolute 0.05 K/mm3 (0.00-0.031); Immature Granulocyte Percent A 0.5 % (0-0.5); Lymphocytes Absolute Auto 0.64 K/mm3 (0.9-3.2); Lymphocytes Percent Auto 5.9 % (18.3-44.2); Mean Corpuscular HGB Conc 31.1 g/dl (32-36); Mean Corpuscular Hemoglobin 27.7 pg (26-34); Mean Platelet Volume 10.1 fl (7.4-10.4); Monocytes Absolute Auto 1.2 K/mm3 (0.1-0.6); Monocytes Percent Auto 11.4 % (2.6-8.5); Neutrophils Absolute Auto 8.9 K/mm3 (1.3-6.7); Platelet Count Result 205 k/mm3 (150-375); Red Blood Count 4.26 M/mm3 (4.6-6.20); Red Cell Distribution Width 14.2 % (11.5-14.5); White Blood Count 10.8 K/mm3 (4.5-10.0)
[2024-12-05 16:39] LABS: Alanine Aminotransferase 18 U/L (6-50); Albumin Level 4.1 g/dL (3.5-5.1); Alkaline Phosphatase 78 U/L (38-126); Anion Gap 9 mmol/L (4-12); Aspartate Amino Transferase 37 U/L (17-59); Bilirubin,Total 0.5 mg/dL (0.2-1.3); Blood Urea Nitrogen 33 mg/dL (9-20); Calcium 9.2 mg/dL (8.4-10.2); Carbon Dioxide 26 mmol/L (22-30); Chloride 103 mmol/L (98-107); Estimated CRCL calculation 28 ml/min; Estimated Glomerular Filt Rate 29; Glucose 138 mg/dL (65-110); Potassium 5.2 mmol/L (3.4-5.0); Sodium 138 mmol/L (137-145); Total Protein 7.8 g/dL (6.3-8.2)
[2024-12-05 16:46] LABS: INR 1.1; Prothrombin Time 14.7 Seconds (11.1-14.7)
--- OUTSIDE RECORDS SUMMARY | 2024-12-05 16:49 | XMS_ITS | CONTINUITY OF CARE DOCUMENT ---
Author Name yisel morillo Address Unknown Organization [facility] Address [address] [place] [address] Phone [phone] Care Team Providers Care Finishing Wire Sawyer Name Role Phone Migue Hill MD Unavailable [phone] Migue Hill MD Unavailable [phone] INSURANCE PROVIDERS Payer name Policy type / Coverage type Quin red libertarian ID AETNA MEDICARE KEM PPO Medicare [id number]
--- OUTSIDE RECORDS SUMMARY | 2024-12-05 16:49 | XMS_ITS | Continuity of Care Document ---
Author Name [facility] Organization [facility] Care Team Providers Care Assistant Women'S Tennis Coach Name Role Phone [facility] Unavailable Unavailable Encounters Combined list of: 1) Encounters from [facility] facilities going backup to the last 18 months, not all VA inpatient encounters are included; 2) Encounters from the Department of [facility] facilities going backup to 280 months. Location Location Details Encounter Type Encounter Number Reason For Visit Attending Provider ADM Date DC Date Status Disposition Source [facility] Outpatient Encounter [id number] 01/12 [facility] Outpatient Encounter [id number] 01/21 [facility]
--- OUTSIDE RECORDS SUMMARY | 2024-12-05 16:49 | XMS_ITS | Clinical Summary ---
Author Organization [facility] [address] Address [address] [place] [address] Care Team Providers Care Manager Of Case Management Name Role Phone Enmanuel Martinez MD Unavailable [phone] Rolando Reed MD Primary Care Provider [...] 04/05/2024 Assessment & Plan (04/26/2024 11:38 AM SYSTEM TRAINER): Tai is a pleasant 73-year-old male that [...] 04/05/2024 Assessment & Plan (04/26/2024 11:38 AM SYSTEM TRAINER): History consistent with intermittent gout flares affecting [...] Comments Blood Pressure 110/70 04/26/2024 10:49 AM SYSTEM TRAINER Pulse 63 04/26/2024 10:49 AM SYSTEM TRAINER Temperature 36.8 C (98.2 F) 05/03/2020 11:07 AM SYSTEM TRAINER Respiratory Rate - - Oxygen Saturation 96% 04/26/2024 10:49 AM SYSTEM TRAINER Inhaled Oxygen Concentration - - Weight 82.8 kg (182 lb 9.6 oz) 04/26/2024 10:49 AM SYSTEM TRAINER Height 177.8 cm (5' 10) 04/26/2024 10:49 AM SYSTEM TRAINER Body Mass Index 26.2 04/26/2024 10:49 AM SYSTEM TRAINER Plan of Treatment Health Maintenance Due Date [...] Vaccine (Season Ended) 2025 03/28/20 20 Insurance COUNTS INCLUDE 234 BEDS AT THE [facility] MEDICARE INCLUDE 234 BEDS AT THE [facility] MEDICARE Address: [facility] [id number] [place] [phone] AETNA MEDICARE Care Teams Manager Of Case Management Relationship Specialty Start Date End Date Rolando Reed MD [address] [facility] [address] [place] [address] PCP - General Family Medicine 03/09/24 Enmanuel Martinez MD [facility] [place] [address] Consulting Physician Rheumatology 03/09/24
--- OUTSIDE RECORDS SUMMARY | 2024-12-05 16:49 | XMS_ITS | Referral Summary ---
Author Organization [facility] [address] Address [address] [place] [address] Care Team Providers Care Political Research Scientist Name Role Phone Enmanuel Martinez MD Unavailable [phone] Rolando Reed MD Primary Care Provider [...] 04/05/2024 Assessment & Plan (04/26/2024 11:38 AM GRATING MACHINE OPERATOR): Tai is a pleasant 73-year-old male [...] 04/05/2024 Assessment & Plan (04/26/2024 11:38 AM GRATING MACHINE OPERATOR): History consistent with intermittent gout flares [...] Comments Blood Pressure 110/70 04/26/2024 10:49 AM GRATING MACHINE OPERATOR Pulse 63 04/26/2024 10:49 AM GRATING MACHINE OPERATOR Temperature 36.8 C (98.2 F) 05/03/2020 11:07 AM GRATING MACHINE OPERATOR Respiratory Rate - - Oxygen Saturation 96% 04/26/2024 10:49 AM GRATING MACHINE OPERATOR Inhaled Oxygen Concentration - - Weight 82.8 kg (182 lb 9.6 oz) 04/26/2024 10:49 AM GRATING MACHINE OPERATOR Height 177.8 cm (5' 10) 04/26/2024 10:49 AM GRATING MACHINE OPERATOR Body Mass Index 26.2 04/26/2024 10:49 AM GRATING MACHINE OPERATOR Plan of Treatment Not on file Insurance AETNA MEDICARE Care Teams Political Research Scientist Relationship Specialty Start Date End Date Rolanod Reed MD [address] [place] [address] [place] [address] PCP - General Family Medicine 03/09/24 Enmanuel Martinez MD [address] [place] [address] Consulting Physician Rheumatology 03/09/24
[2024-12-05 17:12] LABS: Add Urine Microscopic? YES; Appearance Urine Turbid (Clear); Bacteria Urine 4+ /hpf; Bilirubin Urine Negative (Negative); Blood Urine 2+ (Negative); Color Urine Yellow (Yellow); Glucose Urine UA Negative (Negative); Ketones Urine Trace mg/dL (Negative); Leukocyte Esterase Ur 3+ LEU/UL (Negative); Need Manual Microscopic Reviewed; Nitrate Urine Positive (Negative); Protein Urine 3+ mg/dL (Negative); RBC Urine 21-50 /hpf (0-2); Specific Grav Ur 1.015 (1.001-1.035); Squamous Epithelial Cell Urine Few /hpf (Few); WBC Urine >100 /hpf (0-3); pH Urine 5.5 (5.0-9.0)
[2024-12-05 17:19] LABS: Influenza A QL RT-PCR Negative (Negative); Influenza B QL RT-PCR Negative (Negative); RSV RNA, RT-PCR Negative (Negative); SARS-CoV-2 RNA PCR Negative (Negative)
[2024-12-05 17:42] VITALS: BP 103/54; PULSE 76; RESP 18; O2SAT 100
== END 2024-12-05 18:40 | disposition home or self-care (01) ==
PROVIDERS: Emergency Provider Emergency Medicine; PCP Family Medicine
DX: N39.0 Urinary tract infection, site not specified (principal); Z20.822 Contact with and (suspected) exposure to COVID-19; F17.210 Nicotine dependence, cigarettes, uncomplicated; I12.9 Hypertensive chronic kidney disease with stage 1 through stage 4 chronic kidney disease, or unspecified chronic kidney disease; E11.22 Type 2 diabetes mellitus with diabetic chronic kidney disease; N18.9 Chronic kidney disease, unspecified
CPT/HCPCS: 36415; 71045; 80053; 81001; 85025; 85610; 85730; 87086; 87186; 87637; 93005; 96365; 99284; J0696

== ENCOUNTER 2025-05-09 13:23 | Outpatient (CLI) | payer MEDICARE, SELFPAY ==
[2025-05-09 14:25] LABS: Hematocrit 38.4 % (42.0-52.0); Hemoglobin 12.4 g/dL (14.0-18.0); Immature Granulocyte Percent A 0.4 % (0-0.5); Lymphocytes Absolute Auto 1.15 K/mm3 (0.9-3.2); Mean Corpuscular HGB Conc 32.3 g/dl (32-36); Mean Corpuscular Hemoglobin 28.3 pg (26-34); Mean Corpuscular Volume 87.7 fl (80-100); Nucleated Red Blood Cells Absolute Auto 0.000 K/mm3 (0.0-0.012); Nucleated Red Blood Cells Perc 0.0 % (0.0-0.2); Platelet Count Result 165 k/mm3 (150-375); Red Blood Count 4.38 M/mm3 (4.6-6.20); White Blood Count 7.6 K/mm3 (4.5-10.0)
[2025-05-09 14:50] LABS: Alanine Aminotransferase 13 U/L (6-50); Albumin Level 4.5 g/dL (3.5-5.1); Alkaline Phosphatase 112 U/L (38-126); Anion Gap 8 mmol/L (4-12); Aspartate Amino Transferase 22 U/L (17-59); Bilirubin,Total 0.6 mg/dL (0.2-1.3); Blood Urea Nitrogen 24 mg/dL (9-20); Calcium 9.1 mg/dL (8.4-10.2); Carbon Dioxide 27 mmol/L (22-30); Chloride 104 mmol/L (98-107); Estimated Glomerular Filt Rate 42; Glucose 99 mg/dL (65-110); Potassium 3.9 mmol/L (3.4-5.0); Sodium 139 mmol/L (137-145); Total Protein 7.9 g/dL (6.3-8.2)
== END 2025-05-09 13:24 | disposition home or self-care (01) ==
PROVIDERS: PCP Family Medicine
DX: L40.0 Psoriasis vulgaris (principal)
CPT/HCPCS: 36415; 80048; 80076; 85025; 86480

== ENCOUNTER 2025-05-22 11:00 | Outpatient (CLI) | payer MEDICARE, SELFPAY ==
[2025-05-22 11:41] LABS: Cholesterol 162 mg/dL (0-200); HDL Direct 50 mg/dL; Triglycerides 208 mg/dL (<150)
[2025-05-22 11:44] LABS: Hemoglobin A1C 6.5 % (<5.7)
[2025-05-22 12:12] LABS: Thyroid Stimulating Hormone Reflex 1.820 uIU/mL (0.465-4.68)
[2025-05-22 12:17] LABS: Prostate Specific Antigen 1.3 ng/mL (< OR = 4.0)
--- OUTSIDE RECORDS SUMMARY | 2025-05-22 12:37 | XMS_ITS | Clinical Summary ---
Author Organization [facility] Address [address] [place] [address] Care Team Providers Care Respiratory Technician Name Role Phone Unavailable Primary Care Provider Unavailabl e Source Comments [facility],non-owned Affiliates and Associated Physician Practices is amultiple site organization consisting of ambulatory clinics and hospital sitesin [place], [place], [place] and [place]. This disclosure is being madepursuant to the Care Everywhere program and may not contain all information available regarding this patient. Last updated 18.[facility] Encounters Date Type Department Care Team Description 05/04/2025 Lab Requisition [facility] - DermPath Lab [address] [place] [address] Jesusita Calderon MD Neoplasm of uncertain behavior of skin from Last 3 Months Social History Tobacco Use Types Packs/Day Years Used Date Smoking Tobacco: Never Assessed Sex and Gender Information Value Date Recorded Sex Assigned at Not on file Legal Sex Male 3:43 PM [facility] Gender Identity Not on file Sexual Orientation Not on file Plan of Treatment Health Maintenance Due Date Last Done Comments COLOGUARD (AGES 45-75) - COL ON CA SCREENING 1950 COLON MONITORING 1950 COLONOSCOPY - COLON CA SCREENING 1951 CT COLONOGRAPHY - COLON CA SCREENING 1950 Colorectal Cancer Screening 1950 FIT - COLON CA SCREENING 1950 FLEX SIG - COLON CA SCREENING 1950 LIPID TESTING 1950 HEPATITIS C SCREENING 11/10/1969 DTAP/TDAP/TD VACCINES (1 - Tdap) 11/14/1970 PNEUMOCOCCAL VACCINE 50+ (1 of 1 - PCV) 11/14/2001 ZOSTER VACCINE (1 of 2) 11/14/2001 DEPRESSION SCREENING 06/22/2024 MEDICARE AWV CALENDAR YEAR 2024 COVID-19 VACCINE ( - 2024-2 6 season) 2025 INFLUENZA VACCINE (#1) 2025 Respiratory Syncytial Virus (RSV) Vaccine Pt: or over 60 yrs (1 - 1-dose 75+ series) 11/14/2026 HEPATITIS B VACCINE Aged Out No longe r eligible based on patient's age to complete this topic HIB VACCINE Aged Out No longer eligi ble based on patient's age to complete this topic HPV VACCINE Aged Out No longer eligi ble based on patient's age to complete this topic MENINGOCOCCAL (Group B) VACC INE SHARED DECISION-MAKING Aged Out No longer eligibl e based on patient's age to complete this topic MENINGOCOCCAL GROUPS A/C/Y/W VACCINE Aged Out No longer eligible b ased on patient's age to complete this topic Procedures Procedure Name Priority Date/Time Associated Diagnosis Comments DERMATOPATHOLOGY Routine 05/04/2025 8:00 AM [facility] Neoplasm of uncertain behavior of skin from Last 3 Months Results * DERMATOPATHOLOGY (05/04/2025 8:00 AM [facility]) Case Report Dermatopathology Report Case: [id number] Authorizing Provider: Jesusita Calderon MD Collected: 05/04/2025 08:00 AM Ordering Location: [facility] - Received: 05/05/2025 06:31 AM DermPath Lab Pathologist: Elvie Koch MD Specimen: Skin, right upper arm 5 4:25 PM [facility] Final Diagnosis Specimen A. 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 The specimen consists of a shave biopsy measuring 67x33n1 mm. Jar 0. 4:25 PM [facility] Microscopic Description Specimen A. SKIN, right upper arm: Neutrophils, histiocytes, and multinucleated giant cells are present within the dermis. There is focal parakeratosis and spongiosis. In the dermis there is a mainly superficial perivascular lymphohistiocytic inflammatory infiltrate with eosinophils. The epidermis is focally necrotic and covered with a scale-crust. There is fibrin at the base. GMS stain is negative for fungus. Gram stain highlights bacteria in the overlying serum scale crust. IL-36 fails to stain the epidermis. Additional deeper sections were obtained and reviewed. COMMENT: The histological differential diagnosis of the spongiotic dermatitis includes a contact dermatitis, nummular eczema, an eczematous drug eruption, and less likely the urticarial phase of bullous pemphigoid. 4:25 PM [facility] Disclaimer An external and internal positive and negative controls are appropriate for the histochemical, immunohistochemical and immunofluorescence stain(s) in this case (if any), except where stated explicitly. The performance characteristics of the stain(s) cited in this report were developed and its performance characteristic determined by the Dermatopathology Laboratory at [facility], directed by Dr. Ronny Trinidad. These tests need not be, and therefore are not, approved by the [place] Food and Drug Administration. The tests are used for clinical purposes. Billing Codes Specimen Charges Stain Charges 80471 1 [id number] 1 1 1 5 4:25 PM [facility] Embedded Images 5 4:25 PM [facility] Pathology/Cytolo gy TISSUE SPECIMEN FROM SKIN / Unknown 05/04/2025 8:00 AM [facility] 05/05/2025 6:31 AM [facility] Jesusita Calderon MD LAB - PATHOLOGY/CYTOLOGY OR DERABLES Final Result DERMATOPATHOLOGY LABORATORY [facility] - Department of Dermatology [address], [address] [phone] from Last 3 Months Insurance AETNA MEDICARE ADV T
--- OUTSIDE RECORDS SUMMARY | 2025-05-22 12:37 | XMS_ITS | Encounter Summary ---
Author Organization [facility] Address [address] [facility] [place] [address] Care Team Providers Care Hotel Room Attendant Name Role Phone Unavailable Primary Care Provider Unavailabl e Encounter Details Date Type Department Care Team (Late st Contact Info) Description 05/04/2025 Lab Requisition [facility] - DermPath Lab [address] [facility], [facility] [place] [id number] Jesusita Calderon MD [address] [facility] [address] [place] [address] Neoplasm of uncertain behavior of skin Social History Tobacco Use Types Packs/Day Years Used Date Smoking Tobacco: Never Assessed Sex and Gender Information Value Date Recorded Sex Assigned at Not on file Legal Sex Male 3:43 PM TECHNICAL TRAINING INSTRUCTOR Gender Identity Not on file Sexual Orientation Not on file documented as of this encounter Plan of Treatment Not on file documented as of this encounter Procedures Procedure Name Priority Date/Time Associated Diagnosis Comments DERMATOPATHOLOGY Routine 05/04/2025 8:00 AM TECHNICAL TRAINING INSTRUCTOR Neoplasm of uncertain behavior of skin documented in this encounter Results * DERMATOPATHOLOGY (05/04/2025 8:00 AM TECHNICAL TRAINING INSTRUCTOR) Case Report Dermatopathology Report Case: [id number] Authorizing Provider: Jesusita Calderon MD Collected: 05/04/2025 08:00 AM Ordering Location: [facility] - Received: 05/05/2025 06:31 AM DermPath Lab Pathologist: Elvie Koch MD Specimen: Skin, right upper arm 4:25 PM TECHNICAL TRAINING INSTRUCTOR DERMATOPATHOLOGY LABORATORY Final Diagnosis Specimen A. SKIN, right upper arm: GRANULOMATOUS DERMATITIS CONSISTENT WITH A RUPTURED CYST OR HAIR FOLLICLE (L72.0) SPONGIOTIC DERMATITIS WITH EOSINOPHILS, IMPETIGINIZED (L30.8) EPIDERMAL NECROSIS SUGGESTIVE OF EXCORIATION (L98.499) 4:25 PM [facility] DERMATOPATHOLOGY LABORATORY at [address]25 TECHNICAL TRAINING INSTRUCTOR Clinical History Neoplasm of Uncertain Behavior vs PSO vs NMSC 4:25 PM [facility] DERMATOPATHOLOGY LABORATORY Gross Description Specimen A: Received is one formalin filled container labeled with the patient's name and designated right upper arm. The specimen consists of a shave biopsy measuring [id number] mm. Jar 0. 4:25 PM [facility] DERMATOPATHOLOGY LABORATORY Microscopic Description Specimen [...] urticarial phase of bullous pemphigoid. 4:25 PM [facility] DERMATOPATHOLOGY LABORATORY Disclaimer An external and internal positive and negative controls are appropriate for the histochemical, immunohistochemical and immunofluorescence stain(s) in this case (if any), except where stated explicitly. The performance characteristics of the stain(s) cited in this report were developed and its performance characteristic determined by the Dermatopathology Laboratory at [facility], directed by Dr. Ronny Trinidad. These tests need not be, and therefore are not, approved by the [place] Food and Drug Administration. The tests are used for clinical purposes. Billing Codes Specimen Charges Stain Charges 46522 1 47623 [id number] 1 1 1 4:25 PM [facility] DERMATOPATHOLOGY LABORATORY Embedded Images 4:25 PM [facility] DERMATOPATHOLOGY LABORATORY Pathology/Cytolo gy TISSUE SPECIMEN FROM SKIN / Unknown 05/04/2025 8:00 AM TECHNICAL TRAINING INSTRUCTOR 05/05/2025 6:31 AM TECHNICAL TRAINING INSTRUCTOR us Jesusita Calderon MD LAB - PATHOLOGY/CYTOLOGY OR DERABLES Final Result DERMATOPATHOLOGY LABORATORY [facility] - Department of Dermatology [facility] [address] [place] [address], [address] [place] [address], [facility] [phone] documented in this encounter Visit Diagnoses Diagnosis Neoplasm of uncertain behavior of skin documented in this encounter
--- OUTSIDE RECORDS SUMMARY | 2025-05-22 12:37 | XMS_ITS | Clinical Summary ---
Author Organization [facility] [place] [address] Address [address] [place] [address] Care Team Providers Care Assistant Front Office Manager Name Role Phone Enmanuel Martinez MD Unavailable [phone] Rolando Reed MD Primary Care Provider [...] 04/05/2024 Assessment & Plan (04/26/2024 11:38 AM ASBESTOS TEXTILE SUPERVISOR): Tai is a pleasant 73-year-old male [...] 04/05/2024 Assessment & Plan (04/26/2024 11:38 AM ASBESTOS TEXTILE SUPERVISOR): History consistent with intermittent gout flares [...] Comments Blood Pressure 110/70 04/26/2024 10:49 AM ASBESTOS TEXTILE SUPERVISOR Pulse 63 04/26/2024 10:49 AM ASBESTOS TEXTILE SUPERVISOR Temperature 36.8 C (98.2 F) 05/03/2020 11:07 AM [employer]BESTOS TEXTILE SUPERVISOR Respiratory Rate - - Oxygen Saturation 96% 04/26/2024 10:49 AM ASBESTOS TEXTILE SUPERVISOR Inhaled Oxygen Concentration - - Weight 82.8 kg (182 lb 9.6 oz) 04/26/2024 10:49 AM ASBESTOS TEXTILE SUPERVISOR Height 177.8 cm (5' 10) 04/26/2024 10:49 AM ASBESTOS TEXTILE SUPERVISOR Body Mass Index 26.2 04/26/2024 10:49 AM ASBESTOS TEXTILE SUPERVISOR Plan of Treatment Health Maintenance Due [...] Well Visit 65+ 11/14/2016 Influenza Vaccine (#1) 2025 03/28/2020 Insurance [facility] MEDICARE [employer] MEDICARE Care Teams Assistant Front Office Manager Relationship Specialty Start Date End Date Rolando Reed MD [address] [facility] [address] [place] [address] PCP - General Family Medicine 03/09/24 Enmanuel Martinez MD [address] [place] [address] Consulting Physician Rheumatology 03/09/24
== END 2025-05-22 11:01 | disposition home or self-care (01) ==
PROVIDERS: PCP Family Medicine
DX: E11.29 Type 2 diabetes mellitus with other diabetic kidney complication (principal); N18.30 Chronic kidney disease, stage 3 unspecified; Z12.5 Encounter for screening for malignant neoplasm of prostate
CPT/HCPCS: 36415; 80061; 83036; 84153; 84443; G0103